=== PATIENT | male | born 1955 ===

== ENCOUNTER 2024-07-31 16:28 | Inpatient (IN) ==
[2024-07-31 17:19] LABS: Basophils # (auto) 0.01 K/uL (0.00-0.20); Basophils % (auto) 0.3 %; Eosinophils # (auto) 0.04 K/uL (0.00-0.50); Eosinophils % (auto) 1.1 %; Hemoglobin 12.2 g/dl (14.0-18.0); Immature Granulocytes # (auto) 0.01 K/uL (0.01-0.20); Immature Granulocytes % (auto) 0.3 %; Lymphocytes # (auto) 0.63 K/uL (1.20-3.40); Lymphocytes % (auto) 16.8 %; Mean Corpuscular Hemoglobin 28.8 pg (25.0-34.0); Mean Corpuscular Hgb Conc 32.1 g/dL (32.0-36.0); Mean Corpuscular Volume 89.8 fL (80.0-100.0); Mean Platelet Volume 10.5 fL (9.4-12.4); Monocytes # (auto) 0.32 K/uL (0.11-0.59); Monocytes % (auto) 8.6 %; Neutrophils # (auto) 2.73 K/uL (1.40-6.50); Neutrophils % (auto) 72.9 %; Platelet Count 157 K/uL (130-400); RDW Coefficient of Variation 15.1 % (11.5-14.5); RDW Standard Deviation 49.8 fL (36.4-46.3); Red Blood Count 4.23 M/uL (4.70-6.10); White Blood Count 3.74 K/ul (4.8-10.8)
[2024-07-31 17:35] LABS: Anion Gap 7 (3-11); BUN Creatinine Ratio 23.4 (10-20); Blood Urea Nitrogen 30 mg/dl (6-23); Calcium 10.7 mg/dl (8.6-10.3); Carbon Dioxide 32 mmol/L (21-32); Chloride 103 mmol/L (98-107); Creatinine Clr Calc Pharmacy 59.6 ml/min; Glucose 231 mg/dl (70-99(Fasting)); Potassium 4.2 mmol/L (3.5-5.1); Sodium 142 mmol/L (136-145)
[2024-07-31 17:41] LABS: Troponin I High Sensitivity 14.9 pg/ml (0-20)
[2024-07-31 17:45] LABS: Partial Thromboplastin Ratio 0.9; Partial Thromboplastin Time 25 Seconds (21-31); Prothrombin Time 10.5 Seconds (9.0-12.0)
[2024-07-31 19:07] LABS: Alanine Aminotransferase < 3 U/L (7-52); Albumin Level 3.9 gm/dl (3.4-5.0); Alkaline Phosphatase 85 U/L (34-104); Aspartate Aminotransferase 5 U/L (13-39); Bilirubin Direct 0.3 mg/dl (0-0.2); Creatine Kinase 69 U/L (30-223); Magnesium 1.7 mg/dl (1.7-2.4); Total Protein 7.2 gm/dl (6.0-8.3)
--- NOTE | 2024-07-31 19:09 | XRay Report ---
Clinical History: Fall Technique: 2 frontal views of the chest were obtained Findings: There are no confluent pulmonary infiltrates. The heart size is within normal limits. No pleural effusion or pneumothorax is seen. There is a suspected small calcified granuloma in the left midlung No fracture is noted. There is a right chest wall port with its tip at the junction of the SVC and right atrium Impression: No active disease Electronically signed by Mahendra Davey 07-31-2024 7:09 PM
--- NOTE | 2024-07-31 19:10 | XRay Report ---
Clinical History: Fall 2 views of the right shoulder are submitted for review. Findings: No definite acute fracture is seen. There is superior displacement of the clavicle with respect to the acromion and coracoid process, with associated chronic heterotopic ossification. No other osseous abnormality is identified. There are no radiopaque foreign bodies. Impression: Grade 3 acromioclavicular separation, likely old Electronically signed by Mahendra Davey 07-31-2024 7:10 PM
--- NOTE | 2024-07-31 19:12 | XRay Report ---
Clinical History: Fall 8 views of the right femur are submitted for review. Findings: No fracture or dislocation is seen. No significant arthritic changes are noted. No other osseous abnormality is identified. There are no radiopaque foreign bodies. Impression: No definite fracture is seen. If pain persists, CT could be considered Electronically signed by Mahendra Davey 07-31-2024 7:12 PM
[2024-07-31] MEDS: OPTIRAY 320 100ml IV ONE (19:18)
[2024-07-31 19:38] LABS: Influenza A virus by PCR Negative (Neg); Influenza B virus by PCR Negative (Neg); RSV by PCR Negative (Neg); SARS CoV2 RNA(COVID-19) Ceph NEGATIVE (Negative)
[2024-07-31 20:13] LABS: Appearance Urine Cloudy (Clear); Bacteria Urine Automated None Seen (None Seen); Bilirubin Urine Negative (Negative); Blood Urine Negative (Negative); Color Urine Dark Yellow; Glucose Urine UA 1+ (Negative); Ketones Urine 1+ (Negative); Leukocyte Esterase Urine 2+ (Negative); Nitrite Urine Negative (Negative); Protein Urine 1+ (Negative); Specific Gravity Urine 1.019 (1.000-1.030); Urobilinogen Urine Negative (Negative); WBC Urine Automated >50 /hpf (0-5)
[2024-07-31] MEDS ORDERED: ONDANSETRON INJ 2 MG/ML 2 ML VIAL IV PRN (23:30)
--- NOTE | 2024-07-31 23:30 | History & Physical Report ---
Date of Service July 31, 2024 Assessment & Plan (1) Right femoral fracture: (2) Parkinson disease: (3) Dementia: (4) Diabetes: (5) History of kidney transplant: (6) Stenosis of right carotid artery: (7) Aortic stenosis: (8) CAD (coronary artery disease): (9) BPH (benign prostatic hyperplasia): Plan Pt is a 69 yo male with PMH of DM, dementia, hx of kidney transplant, parkinson's, HLD, primary hyperparathyroidism, and diastolic heart failure presenting to the hospital d/t a fall. Right femoral fracture s/p fall - pt with recent fall - lab work significant for no leukocytosis, Hgb 12.2, electrolytes WNL, Cr 1.28, lactate 1.1, Ca 10.7, procal 0.08 - per ER note (as images not available for review in EHR); CT head negative, CTAP negative for acute abdominal pathology - shoulder xray w/o acute findings (old AC separation noted); CXR negative - femoral xray w/o fracture; however, right femoral fracture noted on CTAP - pain control with tylenol PRN, morphine for breakthrough pain - ortho consulted for possible surgical intervention Primary hyperparathyroidism/hypothyroidism - listed in pt's paper chart; unclear whether or not pt's has had surgical removal of thyroid/parathyroid - Ca 10.7 upon admission; last 9.6 07/24 - would continue home levothyroxine 137mcg daily and cinacalcet 60 mg daily per home med list DM - on insulin as home regimen; no oral meds - insulin glargine 4 mg BID with SSI PRN Parkinsons disease - continue home meds; entacapone 200mg TID, carbidopa 25/levodopa 100 two tabs QID CAD/right carotid artery stenosis/HTN/HLD/aortic stenosis - continue home carvedilol 25 mg BID, atorvastatin 80 mg daily, amlodipine 10 mg daily, aspirin 81 mg daily Dementia/depression/insomnia - continue home meds; quetiapine 12.5mg HS, zyprexa 2.5mg BID, memantine 10 mg BID, duloxetine 30 mg BID, trazodone 75 mg HS, and donepezil 10 mg daily Hx of kidney transplant - continue home tacrolimus 1mg qAM, 0.5mg HS BPH - continue home tamsulosin 0.8mg daily Diet: NPO pending surgical intervention Code: full VTE ppx: held in the setting of pending surgical intervention Dispo: admit to med/surg History of Present Illness Chief Complaint: fall, right hip/shoulder pain Primary Care Provider: Teresa Pendleton Pt is a 69 yo male with PMH of DM, dementia, hx of kidney transplant, parkinson's, HLD, primary hyperparathyroidism, and diastolic heart failure presenting to the hospital d/t ongoing pain after a fall. Pt seen at bedside; he is able to provide limited history. He does note that he had a significant fall a few days ago and now his right leg and shoulder hurt. No family at bedside to provide additional hx. Pt notes his current pain is 5/10. In the ER, pt was ordered pain medications but he did not receive any doses. Allergies Allergy/AdvReac Type Severity Reaction Status Date / Time No Known Allergies Allergy Unverified 07/31/24 20:14 Home Medications Medication Instructions Recorded Confirmed Type acetaminophen 325 mg tablet 650 mg PO Q6H PRN ELEVATED 07/31/24 07/31/24 History TEMPERATURE >101 acetaminophen 325 mg tablet 650 mg PO Q6H PRN PANCHO LEVEL 1-3 07/31/24 07/31/24 History ON A SCALE OF 1-10 acetaminophen 325 mg tablet 650 mg PO Q6H PRN Pain (Scale 07/31/24 07/31/24 History Score 1-10) amlodipine 10 mg tablet 10 mg PO DAILY 07/31/24 07/31/24 History aspirin 81 mg chewable tablet 81 mg PO DAILY 07/31/24 07/31/24 History atorvastatin 80 mg tablet 80 mg PO DAILY 07/31/24 07/31/24 History bisacodyl 10 mg rectal suppository 10 mg [place] Q48H PRN Constipation 07/31/24 07/31/24 History (Dulcolax (bisacodyl)) carbidopa 25 mg-levodopa 100 mg 2 tab PO QID 07/31/24 07/31/24 History tablet carvedilol 25 mg tablet 25 mg PO BID 07/31/24 07/31/24 History cinacalcet 60 mg tablet 60 mg PO DAILY 07/31/24 07/31/24 History cyanocobalamin (vitamin B-12) 500 500 mcg PO DAILY 07/31/24 07/31/24 History mcg tablet dextrose 40 % oral gel 1 ea PO USEASDIRECTD PRN 07/31/24 07/31/24 History HYPOGLYCEMIA BLOOD GLUCOSE LESS THAN 60 donepezil 10 mg tablet 10 mg PO DAILY 07/31/24 07/31/24 History duloxetine 30 mg capsule,delayed 30 mg PO Q12H 07/31/24 07/31/24 History release sprinkle entacapone 200 mg tablet 200 mg PO TID 07/31/24 07/31/24 History ferrous sulfate 325 mg (65 mg 325 mg PO DAILY 07/31/24 07/31/24 History iron) tablet fluticasone propionate 50 2 spray intranasal DAILY PRN 07/31/24 07/31/24 History mcg/actuation nasal Congestion spray,suspension folic acid 1 mg tablet 1 mg PO DAILY 07/31/24 07/31/24 History glucagon HCl 1 mg solution for 1 mg IM Q15M PRN HYPOGLYCEMIA 07/31/24 07/31/24 History injection (Glucagon (HCl) BLOOD GLUCOSE <60 AND SYMPTOMATIC Emergency Kit) insulin glargine 100 unit/mL (3 8 unit subcut HS 07/31/24 07/31/24 History mL) subcutaneous pen (Lantus Solostar U-100 Insulin) insulin lispro 100 unit/mL 0 unit subcut .CHANA W/M 07/31/24 07/31/24 History subcutaneous pen (Humalog KwikPen (U-100) Insulin) insulin lispro 100 unit/mL 4 unit subcut .SEERXINSTRUCTIONS 07/31/24 07/31/24 History subcutaneous pen (Humalog KwikPen (U-100) Insulin) levothyroxine 137 mcg tablet 137 mcg PO DAILY 07/31/24 07/31/24 History loratadine 10 mg tablet 10 mg PO DAILY 07/31/24 07/31/24 History melatonin 3 mg tablet 12 mg PO HS PRN Insomnia 07/31/24 07/31/24 History memantine 10 mg tablet 10 mg PO Q12H 07/31/24 07/31/24 History nitroglycerin 0.4 mg sublingual 0.4 mg sublingual Q5M PRN Chest 07/31/24 07/31/24 History tablet (Nitrostat) Pain olanzapine 2.5 mg tablet (Zyprexa) 2.5 mg PO Q12H 07/31/24 07/31/24 History omeprazole 40 mg capsule,delayed 40 mg PO BID 07/31/24 07/31/24 History release ondansetron HCl 4 mg tablet 4 mg PO Q8H PRN Nausea 07/31/24 07/31/24 History prednisone 5 mg tablet 5 mg PO DAILY 07/31/24 07/31/24 History quetiapine 25 mg tablet 12.5 mg PO HS 07/31/24 07/31/24 History sennosides 8.6 mg-docusate sodium 1 tab-cap PO HS 07/31/24 07/31/24 History 50 mg tablet (Senna Plus) sodium phosphates 19 gram-7 118 ml [place] Q48H PRN Constipation 07/31/24 07/31/24 History gram/118 mL enema (Enema) tacrolimus 0.5 mg capsule, 0.5 mg PO HS 07/31/24 07/31/24 History immediate-release tacrolimus 1 mg capsule, 1 mg PO DAILY 07/31/24 07/31/24 History immediate-release tamsulosin 0.4 mg capsule (Flomax) 0.8 mg PO DAILY 07/31/24 07/31/24 History thiamine HCl (vitamin B1) 100 mg 100 mg PO DAILY 07/31/24 07/31/24 History tablet torsemide 10 mg tablet 10 mg PO DAILY 07/31/24 07/31/24 History tramadol 50 mg tablet 50 mg PO Q4H PRN HIP PAIN 07/31/24 07/31/24 History tramadol 50 mg tablet 50 mg PO Q4H PRN HIP PAIN SCALE 07/31/24 07/31/24 History 4-10 trazodone 150 mg tablet 75 mg PO HS 07/31/24 07/31/24 History Past Med/Surg History Problem List (Updated 08/01/24 @ 05:35 by Blayne De La Vega MD) Stenosis of right carotid artery 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 History of kidney transplant Agitation due to dementia Depression Aortic stenosis BPH (benign prostatic hyperplasia) Parkinson disease Diabetes CAD (coronary artery disease) Dementia Right femoral fracture (Acute) Medical History (Updated 08/01/24 @ 05:35 by Blayne De La Vega MD) Hyperlipidemia Stenosis of right carotid artery Social History Smoking Status: Unknown if ever smoked Hx Alcohol Use: No Hx Substance Use: No Preferred Language: Thai [employer] Required: No Beliefs That Will Affect Care: None Feels Safe at Home: Yes Review of Systems Review of Systems: As per HPI Physical Exam Constitutional: NAD, vitals WNL. Eyes: Conjunctivae normal. Respiratory: CTA bilaterally. Non labored breathing. No rhonchi, wheezing, or crackles. Cardiovascular: RRR. 3/6 systolic murmur noted. Minimal right LE edema. Gastrointestinal (Abdomen): Nontender, +BS. No masses noted. Musculoskeletal: Right leg flexed and externally rotated. Skin: No rashes noted. Neurologic: Sensation grossly intact. No FND appreciated. Psychiatric: Speech of normal pace but sometimes of irregular content. Mood and affect congruent. Results & Data Results & Data Vital Signs (Past 12 Hours) Vital Signs Temp Pulse Pulse Resp BP BP Pulse Ox 07/31/24 22:10 76 18 142/79 H 97 07/31/24 21:22 78 07/31/24 21:00 78 20 150/76 H 92 07/31/24 20:45 76 16 153/69 H 97 07/31/24 20:30 77 16 108/86 99 07/31/24 19:42 75 18 120/84 96 07/31/24 18:49 72 17 151/82 H 96 07/31/24 18:41 72 16 115/64 98 07/31/24 18:38 07/31/24 17:51 68 07/31/24 16:36 36.8 C 66 22 159/66 H 93 07/31/24 16:36 36.8 C 67 24 159/66 H 94 O2 Del Method 07/31/24 22:10 Room Air 07/31/24 21:22 07/31/24 21:00 Room Air 07/31/24 20:45 Room Air 07/31/24 20:30 Room Air 07/31/24 19:42 Room Air 07/31/24 18:49 Room Air 07/31/24 18:41 Room Air 07/31/24 18:38 Room Air 07/31/24 17:51 07/31/24 16:36 Room Air 07/31/24 16:36 Room Air Supervising Physician Co-Signing Physician Notes Attending addendum: I have physically seen this patient, have supervised the medical residents activities, and agree with the H&P unless as otherwise noted. Assessment and Plan: Closed right femur fracture status post ground-level fall- N.p.o. except medications Chest x-ray negative Right femur x-ray negative Right shoulder x-ray notes old AC separation CT head without contrast negative CT abdomen pelvis negative for acute abdominal pathology CT abdomen pelvis does note right femoral fracture Acetaminophen 1 g IV every 8 hours as needed for mild pain or fever Morphine sulfate as needed for breakthrough pain Consult orthopedic surgery Diabetes mellitus- Insulin glargine twice daily and sliding scale insulin for coverage as noted Parkinson's disease/dementia/depression/agitation Continue routine dosing of carbidopa-levodopa and entacapone Continue donepezil, memantine, entacapone, olanzapine Hold trazodone CAD/hypertension/aortic stenosis- Hold aspirin and amlodipine Continue carvedilol 25 mg p.o. twice daily Chronic immunosuppression/history of renal transplant- Continue tacrolimus, Cinacalcet, Hold prednisone, may need stress dose steroids Resident Activity Tracking Resident Involvement: Resident Care Provided Care Provided: Adult Hospital Medicine
--- NOTE | 2024-08-01 00:49 | Emergency Department Note ---
History of Present Illness General Chief complaint: Hip Pain Stated complaint: FALL, HIP PAIN, R SHOULDER PAIN Time Seen by Provider: 07/31/24 16:55 History of Present Illness Provider complaint: Fall Maximum Pain Intensity: 9 49-year-old male presents emergency department for fall. Patient reportedly fell 3 days ago and has been having right hip pain since then. He denies any headache. Does report pain in his right shoulder also. Home Medications Medication Instructions Recorded Confirmed Type acetaminophen 325 mg tablet 650 mg PO Q6H PRN ELEVATED 07/31/24 07/31/24 History TEMPERATURE >101 acetaminophen 325 mg tablet 650 mg PO Q6H PRN PANCHO LEVEL 1-3 07/31/24 07/31/24 History ON A SCALE OF 1-10 acetaminophen 325 mg tablet 650 mg PO Q6H PRN Pain (Scale 07/31/24 07/31/24 History Score 1-10) amlodipine 10 mg tablet 10 mg PO DAILY 07/31/24 07/31/24 History aspirin 81 mg chewable tablet 81 mg PO DAILY 07/31/24 07/31/24 History atorvastatin 80 mg tablet 80 mg PO DAILY 07/31/24 07/31/24 History bisacodyl 10 mg rectal suppository 10 mg MA Q48H PRN Constipation 07/31/24 07/31/24 History (Dulcolax (bisacodyl)) carbidopa 25 mg-levodopa 100 mg 2 tab PO QID 07/31/24 07/31/24 History tablet carvedilol 25 mg tablet 25 mg PO BID 07/31/24 07/31/24 History cinacalcet 60 mg tablet 60 mg PO DAILY 07/31/24 07/31/24 History cyanocobalamin (vitamin B-12) 500 500 mcg PO DAILY 07/31/24 07/31/24 History mcg tablet dextrose 40 % oral gel 1 ea PO USEASDIRECTD PRN 07/31/24 07/31/24 History HYPOGLYCEMIA BLOOD GLUCOSE LESS THAN 60 donepezil 10 mg tablet 10 mg PO DAILY 07/31/24 07/31/24 History duloxetine 30 mg capsule,delayed 30 mg PO Q12H 07/31/24 07/31/24 History release sprinkle entacapone 200 mg tablet 200 mg PO TID 07/31/24 07/31/24 History ferrous sulfate 325 mg (65 mg 325 mg PO DAILY 07/31/24 07/31/24 History iron) tablet fluticasone propionate 50 2 spray intranasal DAILY PRN 07/31/24 07/31/24 History mcg/actuation nasal Congestion spray,suspension folic acid 1 mg tablet 1 mg PO DAILY 07/31/24 07/31/24 History glucagon HCl 1 mg solution for 1 mg IM Q15M PRN HYPOGLYCEMIA 07/31/24 07/31/24 History injection (Glucagon (HCl) BLOOD GLUCOSE <60 AND SYMPTOMATIC Emergency Kit) insulin glargine 100 unit/mL (3 8 unit subcut HS 07/31/24 07/31/24 History mL) subcutaneous pen (Lantus Solostar U-100 Insulin) insulin lispro 100 unit/mL 0 unit subcut .PERSLIDINGSCALE W/M 07/31/24 07/31/24 History subcutaneous pen (Humalog KwikPen (U-100) Insulin) insulin lispro 100 unit/mL 4 unit subcut .SEERXINSTRUCTIONS 07/31/24 07/31/24 History subcutaneous pen (Humalog KwikPen (U-100) Insulin) levothyroxine 137 mcg tablet 137 mcg PO DAILY 07/31/24 07/31/24 History loratadine 10 mg tablet 10 mg PO DAILY 07/31/24 07/31/24 History melatonin 3 mg tablet 12 mg PO HS PRN Insomnia 07/31/24 07/31/24 History memantine 10 mg tablet 10 mg PO Q12H 07/31/24 07/31/24 History nitroglycerin 0.4 mg sublingual 0.4 mg sublingual Q5M PRN Chest 07/31/24 07/31/24 History tablet (Nitrostat) Pain olanzapine 2.5 mg tablet (Zyprexa) 2.5 mg PO Q12H 07/31/24 07/31/24 History omeprazole 40 mg capsule,delayed 40 mg PO BID 07/31/24 07/31/24 History release ondansetron HCl 4 mg tablet 4 mg PO Q8H PRN Nausea 07/31/24 07/31/24 History prednisone 5 mg tablet 5 mg PO DAILY 07/31/24 07/31/24 History quetiapine 25 mg tablet 12.5 mg PO HS 07/31/24 07/31/24 History sennosides 8.6 mg-docusate sodium 1 tab-cap PO HS 07/31/24 07/31/24 History 50 mg tablet (Senna Plus) sodium phosphates 19 gram-7 118 ml MA Q48H PRN Constipation 07/31/24 07/31/24 History gram/118 mL enema (Enema) tacrolimus 0.5 mg capsule, 0.5 mg PO HS 07/31/24 07/31/24 History immediate-release tacrolimus 1 mg capsule, 1 mg PO DAILY 07/31/24 07/31/24 History immediate-release tamsulosin 0.4 mg capsule (Flomax) 0.8 mg PO DAILY 07/31/24 07/31/24 History thiamine HCl (vitamin B1) 100 mg 100 mg PO DAILY 07/31/24 07/31/24 History tablet torsemide 10 mg tablet 10 mg PO DAILY 07/31/24 07/31/24 History tramadol 50 mg tablet 50 mg PO Q4H PRN HIP PAIN 07/31/24 07/31/24 History tramadol 50 mg tablet 50 mg PO Q4H PRN HIP PAIN SCALE 07/31/24 07/31/24 History 4-10 trazodone 150 mg tablet 75 mg PO HS 07/31/24 07/31/24 History Allergies Allergy/AdvReac Type Severity Reaction Status Date / Time No Known Allergies Allergy Unverified 07/31/24 20:14 Past Med/Surg History Problem List (Updated 08/01/24 @ 00:56 by Elias Roth MD) Dementia Right femoral fracture (Acute) Medical History BPH (benign prostatic hyperplasia) CAD (coronary artery disease) Aortic stenosis Stenosis of right carotid artery Diabetes Parkinson disease Surgical History History of kidney transplant Social History Smoking Status: Former smoker Preferred Language: Faroese Feels Safe at Home: Yes Physical Exam Vital Signs Vital Signs - 24 hr 07/31/24 16:36 07/31/24 16:36 07/31/24 17:51 Temperature 36.8 C 36.8 C Temperature Source Oral Oral Pulse Rate 67 68 Pulse Rate [Apical] 66 Respiratory Rate 24 22 Respiratory Effort / Characteristics Non-Labored Spontaneous Respiratory Depth Normal Respiratory Pattern Blood Pressure 159/66 H Blood Pressure [Right Arm] 159/66 H Blood Pressure Mean 97 Blood Pressure Mean [Right Arm] 97 Blood Pressure Position Semi-fowlers Blood Pressure Position [Right Arm] Semi-fowlers Pulse Oximetry 94 93 Oxygen Delivery Method Room Air Room Air Sepsis Recent Fever Within 48 Hours No Sepsis New/Unexplained Change in Mental Status N/A Sepsis Action Taken by Nursing No Action Required 07/31/24 18:38 07/31/24 18:41 07/31/24 18:49 Temperature Temperature Source Pulse Rate Pulse Rate [Apical] 72 72 Respiratory Rate 16 17 Respiratory Effort / Characteristics Non-Labored Spontaneous Non-Labored Spontaneous Respiratory Depth Normal Normal Respiratory Pattern Blood Pressure Blood Pressure [Right Arm] 115/64 151/82 H Blood Pressure Mean Blood Pressure Mean [Right Arm] 81 105 Blood Pressure Position Blood Pressure Position [Right Arm] Semi-fowlers Semi-fowlers Pulse Oximetry 98 96 Oxygen Delivery Method Room Air Room Air Room Air Sepsis Recent Fever Within 48 Hours Sepsis New/Unexplained Change in Mental Status Sepsis Action Taken by Nursing 07/31/24 19:42 07/31/24 20:30 07/31/24 20:45 Temperature Temperature Source Pulse Rate Pulse Rate [Apical] 75 77 76 Respiratory Rate 18 16 16 Respiratory Effort / Characteristics Non-Labored Respiratory Depth Normal Normal Respiratory Pattern Regular Blood Pressure Blood Pressure [Right Arm] 120/84 108/86 153/69 H Blood Pressure Mean Blood Pressure Mean [Right Arm] 96 93 97 Blood Pressure Position Blood Pressure Position [Right Arm] Pulse Oximetry 96 99 97 Oxygen Delivery Method Room Air Room Air Room Air Sepsis Recent Fever Within 48 Hours Sepsis New/Unexplained Change in Mental Status Sepsis Action Taken by Nursing 07/31/24 21:00 07/31/24 21:22 07/31/24 22:10 Temperature Temperature Source Pulse Rate 78 Pulse Rate [Apical] 78 76 Respiratory Rate 20 18 Respiratory Effort / Characteristics Respiratory Depth Respiratory Pattern Blood Pressure Blood Pressure [Right Arm] 150/76 H 142/79 H Blood Pressure Mean Blood Pressure Mean [Right Arm] 100 100 Blood Pressure Position Blood Pressure Position [Right Arm] Pulse Oximetry 92 97 Oxygen Delivery Method Room Air Room Air Sepsis Recent Fever Within 48 Hours Sepsis New/Unexplained Change in Mental Status Sepsis Action Taken by Nursing 07/31/24 23:30 11/05/24 00:24 Temperature Temperature Source Pulse Rate Pulse Rate [Apical] 75 74 Respiratory Rate 18 18 Respiratory Effort / Characteristics Non-Labored Respiratory Depth Normal Respiratory Pattern Blood Pressure Blood Pressure [Right Arm] 148/80 H 161/77 H Blood Pressure Mean Blood Pressure Mean [Right Arm] 102 105 Blood Pressure Position Blood Pressure Position [Right Arm] Pulse Oximetry 96 99 Oxygen Delivery Method Room Air Room Air Sepsis Recent Fever Within 48 Hours Sepsis New/Unexplained Change in Mental Status Sepsis Action Taken by Nursing Physical Exam HENT: Exam performed. - Head: Normocephalic and atraumatic. - Right Ear: External ear normal. No mastoid erythema - Left Ear: External ear normal. No mastoid erythema - Mouth/Throat: The oropharynx is clear and moist. No trismus in the jaw. No dental abscesses or uvula swelling. No oropharyngeal exudate or tonsillar abscesses. EYES: Conjunctivae and EOM are normal. Pupils are equal, round, and reactive to light. Right eye exhibits no discharge. Left eye exhibits no discharge. No scleral icterus. NECK: Normal range of motion. Neck supple. No JVD present. No spinous process tenderness present. CV: Normal rate, regular rhythm, normal heart sounds and intact distal pulses. There is no peripheral edema. Palpable radial pulses bue. PULM/CHEST: Effort normal and breath sounds normal. No respiratory distress. No stridor. He has no wheezes. He has no rales. - Chest Wall: He exhibits no tenderness. No crepitus bilaterally. ABD: The abdomen is soft. There is no tenderness. There is no rebound, no guarding. MUSC/SKEL: Pain on palpation of the right hip. NEURO: He is alert and oriented to person, place, and time. No cranial nerve deficit or sensory deficit. GCS eye subscore is 4. GCS verbal subscore is 5. GCS motor subscore is 6. Cerebellar tests wnl. Course Course 1655: The patient was evaluated in room C10. A complete history and physical exam was performed Cardiac monitoring: An order was placed for continuous cardiac monitoring. The monitor shows a rate of 70 with sinus rhythm interpreted by mo 2215: Vital signs stable. Labs unremarkable. Imaging shows a nondisplaced right intertrochanteric proximal right femur fracture. Patient will be admitted to the medicine service with orthopedics on consult. Administered Medications Discontinued Medications Ioversol (Optiray 320 100ml) 90 ml IV ONCE ONE Stop: 07/31/24 19:18 Last Admin: 07/31/24 19:18 Dose: 90 ml Documented By: MINNA Medical Decision Making Laboratory Data Attestation: I reviewed the patient's lab results. 07/31/24 16:45 07/31/24 16:45 Lab Results 07/31/24 07/31/24 07/31/24 Range/Units 16:45 17:56 18:40 WBC 3.74 L (4.8-10.8) K/ul RBC 4.23 L (4.70-6.10) M/uL Hgb 12.2 L (14.0-18.0) g/dl Hct 38.0 L (42.0-52.0) % MCV 89.8 (80.0-100.0) fL MCH 28.8 (25.0-34.0) pg MCHC 32.1 (32.0-36.0) g/dL RDW Std Deviation 49.8 H (36.4-46.3) fL RDW Coeff of Courtney 15.1 H (11.5-14.5) % Plt Count 157 (130-400) K/uL MPV 10.5 (9.4-12.4) fL Immature Gran % (Auto) 0.3 % Neut % (Auto) 72.9 % Lymph % (Auto) 16.8 % [place] % (Auto) 8.6 % Eos % (Auto) 1.1 % Baso % (Auto) 0.3 % Neut # (Auto) 2.73 (1.40-6.50) K/uL Lymph # (Auto) 0.63 L (1.20-3.40) K/uL [place] # (Auto) 0.32 (0.11-0.59) K/uL Eos # (Auto) 0.04 (0.00-0.50) K/uL Baso # (Auto) 0.01 (0.00-0.20) K/uL Immature Gran # (Auto) 0.01 (0.01-0.20) K/uL PT 10.5 (9.0-12.0) Seconds INR 1.0 (0.9-1.1) APTT 25 (21-31) Seconds PTT Ratio 0.9 Sodium 142 (136-145) mmol/L Potassium 4.2 (3.5-5.1) mmol/L Chloride 103 (98-107) mmol/L Carbon Dioxide 32 (21-32) mmol/L Anion Gap 7 (3-11) BUN 30 H (6-23) mg/dl Creatinine 1.28 (0.6-1.4) mg/dl Est Cr Clr Drug Dosing 59.6 ml/min eGFR 61.34 BUN/Creatinine Ratio 23.4 H (10-20) Glucose 231 H (70-99(Fasting)) mg/dl Lactate 1.1 (0.4-2.0) mmol/L Calcium 10.7 H (8.6-10.3) mg/dl Magnesium 1.7 (1.7-2.4) mg/dl Total Bilirubin 1.0 (0.2-1.0) mg/dl Direct Bilirubin 0.3 H (0-0.2) mg/dl AST 5 L (13-39) U/L ALT < 3 L (7-52) U/L Alkaline Phosphatase 85 (34-104) U/L Total Creatine Kinase 69 (30-223) U/L Troponin I High Sens 14.9 (0-20) pg/ml Total Protein 7.2 (6.0-8.3) gm/dl Albumin 3.9 (3.4-5.0) gm/dl Procalcitonin 0.08 (0-0.5) ng/ml Urine Color Urine Appearance (Clear) Urine pH (4.5-7.5) Ur Specific [place] (1.000-1.030) Urine Protein (Negative) Urine Glucose (UA) (Negative) Urine Ketones (Negative) Urine Blood (Negative) Urine Nitrite (Negative) Urine Bilirubin (Negative) Urine Urobilinogen (Negative) Ur Leukocyte Esterase (Negative) Urine WBC (Auto) (0-5) /hpf Urine RBC (Auto) (0-2) /hpf U Hyaline Cast (Auto) (0-2) /lpf U Epithel Cells (Auto) (0-2) /hpf Urine Bacteria (Auto) (None Seen) Urine Yeast (None Prsent) SARS-CoV-2 (PCR) NEGATIVE (Negative) Influenza Type A (PCR) Negative (Neg) Influenza Type B (PCR) Negative (Neg) RSV (RT-PCR) Negative (Neg) 07/31/24 Range/Units 19:43 WBC (4.8-10.8) K/ul RBC (4.70-6.10) M/uL Hgb (14.0-18.0) g/dl Hct (42.0-52.0) % MCV (80.0-100.0) fL MCH (25.0-34.0) pg MCHC (32.0-36.0) g/dL RDW Std Deviation (36.4-46.3) fL RDW Coeff of Courtney (11.5-14.5) % Plt Count (130-400) K/uL MPV (9.4-12.4) fL Immature Gran % (Auto) % Neut % (Auto) % Lymph % (Auto) % [place] % (Auto) % Eos % (Auto) % Baso % (Auto) % Neut # (Auto) (1.40-6.50) K/uL Lymph # (Auto) (1.20-3.40) K/uL [place] # (Auto) (0.11-0.59) K/uL Eos # (Auto) (0.00-0.50) K/uL Baso # (Auto) (0.00-0.20) K/uL Immature Gran # (Auto) (0.01-0.20) K/uL PT (9.0-12.0) Seconds INR (0.9-1.1) APTT (21-31) Seconds PTT Ratio Sodium (136-145) mmol/L Potassium (3.5-5.1) mmol/L Chloride (98-107) mmol/L Carbon Dioxide (21-32) mmol/L Anion Gap (3-11) BUN (6-23) mg/dl Creatinine (0.6-1.4) mg/dl Est Cr Clr Drug Dosing ml/min eGFR BUN/Creatinine Ratio (10-20) Glucose (70-99(Fasting)) mg/dl Lactate (0.4-2.0) mmol/L Calcium (8.6-10.3) mg/dl Magnesium (1.7-2.4) mg/dl Total Bilirubin (0.2-1.0) mg/dl Direct Bilirubin (0-0.2) mg/dl AST (13-39) U/L ALT (7-52) U/L Alkaline Phosphatase (34-104) U/L Total Creatine Kinase (30-223) U/L Troponin I High Sens (0-20) pg/ml Total Protein (6.0-8.3) gm/dl Albumin (3.4-5.0) gm/dl Procalcitonin (0-0.5) ng/ml Urine Color Dark Yellow Urine Appearance Cloudy A (Clear) Urine pH 6.0 (4.5-7.5) Ur Specific [place] 1.019 (1.000-1.030) Urine Protein 1+ H (Negative) Urine Glucose (UA) 1+ H (Negative) Urine Ketones 1+ H (Negative) Urine Blood Negative (Negative) Urine Nitrite Negative (Negative) Urine Bilirubin Negative (Negative) Urine Urobilinogen Negative (Negative) Ur Leukocyte Esterase 2+ H (Negative) Urine WBC (Auto) >50 H (0-5) /hpf Urine RBC (Auto) 3-5 H (0-2) /hpf U Hyaline Cast (Auto) 3-5 H (0-2) /lpf U Epithel Cells (Auto) 6-10 H (0-2) /hpf Urine Bacteria (Auto) None Seen (None Seen) Urine Yeast Present A (None Prsent) SARS-CoV-2 (PCR) (Negative) Influenza Type A (PCR) (Neg) Influenza Type B (PCR) (Neg) RSV (RT-PCR) (Neg) Imaging Data Radiologist's Impression: Chest X-Ray 07/31/24 17:02 Clinical History: Fall Technique: 2 frontal views of the chest were obtained Findings: There are no confluent pulmonary infiltrates. The heart size is within normal limits. No pleural effusion or pneumothorax is seen. There is a suspected small calcified granuloma in the left midlung No fracture is noted. There is a right chest wall port with its tip at the junction of the SVC and right atrium Impression: No active disease Electronically signed by Mahendra Davey 07-31-2024 7:09 PM Femur X-Ray 07/31/24 17:03 Clinical History: Fall 8 views of the right femur are submitted for review. Findings: No fracture or dislocation is seen. No significant arthritic changes are noted. No other osseous abnormality is identified. There are no radiopaque foreign bodies. Impression: No definite fracture is seen. If pain persists, CT could be considered Electronically signed by Mahendra Davey 07-31-2024 7:12 PM Shoulder X-Ray 07/31/24 17:04 Clinical History: Fall 2 views of the right shoulder are submitted for review. Findings: No definite acute fracture is seen. There is superior displacement of the clavicle with respect to the acromion and coracoid process, with associated chronic heterotopic ossification. No other osseous abnormality is identified. There are no radiopaque foreign bodies. Impression: Grade 3 acromioclavicular separation, likely old Electronically signed by Mahendra Davey 07-31-2024 7:10 PM EXAM: CT Head Without Intravenous Contrast CLINICAL HISTORY: Reason for exam: FALL. TECHNIQUE: Axial computed tomography images of the head/brain without intravenous contrast. CTDI is 28 mGy and DLP is 1451 mGy-cm. Automated exposure control was utilized for the study. A dose lowering technique was utilized adhering to the principles of ALARA. Mild motion artifact. COMPARISON: None. FINDINGS: Brain: No mass effect or acute infarct. No acute hemorrhage. Moderate atrophy and chronic white matter disease. Ventricles: No hydrocephalus or midline shift. Bones/joints: No skull fracture. Soft tissues: No scalp hematoma. Visualized Sinuses: Clear. Mastoid air cells: No mastoid effusion. IMPRESSION: 1. Moderate age-related findings. 2. No skull fracture, bleed, or acute intracranial abnormality. Radiologist: Etta Myles M.D. Electronically Signed: 07/31/24 20:55 Study first marked ready to read at 20:08, study last marked ready to read at 20:08, initial results transmitted at 20:55 EXAM: CT Abdomen and Pelvis With Intravenous Contrast CLINICAL HISTORY: Reason for exam: fall. TECHNIQUE: Axial computed tomography images of the abdomen and pelvis with intravenous contrast. CTDI is 28 mGy and DLP is 1451 mGy-cm. Automated exposure control was utilized for the study. A dose lowering technique was utilized adhering to the principles of ALARA. CONTRAST: Patient received 90 ML OPTIRAY 320 of IV contrast COMPARISON: No relevant prior studies available. FINDINGS: Lung bases: Unremarkable. No mass. No consolidation. ABDOMEN: Liver: Unremarkable. No mass. Gallbladder and bile ducts: There is a 1.7 cm thick layer of 2-3 mm calcific gallstones filling a nondilated gallbladder. No biliary duct dilation or choledocholithiasis is seen. Pancreas: Unremarkable. No mass. No ductal dilation. Spleen: Unremarkable. No splenomegaly. Adrenals: Unremarkable. No mass. Kidneys and ureters: The [place] kidneys are moderately atrophic. There is a right lower quadrant transplant kidney with mild hydronephrosis. No ureterolithiasis is seen. Stomach and bowel: Unremarkable. No obstruction. No mucosal thickening. PELVIS: Appendix: No findings to suggest acute appendicitis. Bladder: The urinary bladder is fully distended but nondilated. Reproductive: Unremarkable as visualized. ABDOMEN and PELVIS: Intraperitoneal space: Bowel loops are nondilated. No pneumoperitoneum, free fluid, or acute inflammatory changes are seen involving the bowel. Bones/joints: There is a acute nondisplaced fracture of the intertrochanteric proximal right femur. Mild to moderate multilevel degenerative changes throughout the spine. No acute fracture or subluxation is seen. Subchondral sclerosis involving the left femoral head consistent with subchondral cysts, less likely avascular necrosis. Soft tissues: Unremarkable. Vasculature: The abdominal aorta is severely calcified but nondilated. There is no aneurysm or dissection. Lymph nodes: Unremarkable. No enlarged lymph nodes. IMPRESSION: 1. The [place] kidneys are moderately atrophic. There is a right lower quadrant transplant kidney with mild hydronephrosis. No ureterolithiasis is seen. 2. There is a acute nondisplaced fracture of the intertrochanteric proximal right femur. 3. There is a 1.7 cm thick layer of 2-3 mm calcific gallstones filling a nondilated gallbladder. No biliary duct dilation or choledocholithiasis is seen. 4. Bowel loops are nondilated. No pneumoperitoneum, free fluid, or acute inflammatory changes are seen involving the bowel. Radiologist: Joshua Vazquez MD Electronically Signed: 07/31/24 21:55 Study first marked ready to read at 19:34, study last marked ready to read at 21:48, initial results transmitted at 21:55 EXAM: CT Cervical Spine Without Intravenous Contrast CLINICAL HISTORY: Reason for exam: FALL. TECHNIQUE: Axial computed tomography images of the cervical spine without intravenous contrast. CTDI is 28 mGy and DLP is 1451 mGy-cm. Automated exposure control was utilized for the study. A dose lowering technique was utilized adhering to the principles of ALARA. COMPARISON: No relevant prior studies available. FINDINGS: Vertebrae: Endplate flattening and osteophyte formation, degenerative. No acute fracture. Discs/spinal canal/neural foramina: Severe degenerative disc disease C4-5, C5-6 and C6-7. Soft tissues: Moderate atherosclerosis bilateral carotid bifurcations.. IMPRESSION: 1. No fracture or acute bony abnormality. Radiologist: Etta Myles M.D. Electronically Signed: 07/31/24 21:01 Study first marked ready to read at 19:59, study last marked ready to read at 19:59, initial results transmitted at 21:01 [facility] Narrative 1655: The patient was evaluated in room C10. A complete history and physical exam was performed Cardiac monitoring: An order was placed for continuous cardiac monitoring. The monitor shows a rate of 70 with sinus rhythm interpreted by me 2215: Vital signs stable. Labs unremarkable. Imaging shows a nondisplaced right intertrochanteric proximal right femur fracture. Patient will be admitted to the medicine service with orthopedics on consult. Impression & Plan Right femoral fracture Discharge Plan Visit Data Chief Complaint: Hip Pain Stated Complaint: FALL, HIP PAIN, R SHOULDER PAIN ED Provider: Elias Roth Discharge Problem: Right femoral fracture Patient Disposition: Admitted As Inpatient Discharge Instructions Interventions: ED Discharge Assessment Last Done: 08/01/24 00:30 Prescriptions Prescriptions: No Action quetiapine 25 mg Tablet 12.5 mg PO HS levothyroxine 137 mcg Tablet 137 mcg PO DAILY atorvastatin 80 mg Tablet 80 mg PO DAILY carvedilol 25 mg Tablet 25 mg PO BID acetaminophen 325 mg Tablet 650 mg PO Q6H MDD 3 GRAMS PRN (Reason: Pain (Scale Score 1-10)) acetaminophen 325 mg Tablet 650 mg PO Q6H PRN (Reason: ELEVATED TEMPERATURE >101) Rx Instructions: DO NOT EXCEED 3 GM/24 HOURS acetaminophen 325 mg Tablet 650 mg PO Q6H MDD 3 GRAMS/24 HOURS PRN (Reason: PANCHO LEVEL 1-3 ON A SCALE OF 1-10) donepezil 10 mg Tablet 10 mg PO DAILY ondansetron HCl 4 mg Tablet 4 mg PO Q8H PRN (Reason: Nausea) sennosides-docusate sodium [Senna Plus] 8.6-50 mg Tablet 1 tab-cap PO HS dextrose [Insta-Glucose] 40 % Gel 1 ea PO USEASDIRECTD PRN (Reason: HYPOGLYCEMIA BLOOD GLUCOSE LESS THAN 60) Rx Instructions: MUST BE RESPONSIVE AND ABLE TO SAFELY SWALLOW prednisone 5 mg Tablet 5 mg PO DAILY melatonin 3 mg Tablet 12 mg PO HS PRN (Reason: Insomnia) omeprazole 40 mg Capsule,Delayed Release(Dr/Ec) 40 mg PO BID entacapone 200 mg Tablet 200 mg PO TID cyanocobalamin (vitamin B-12) 500 mcg Tablet 500 mcg PO DAILY tamsulosin [Flomax] 0.4 mg Capsule 0.8 mg PO DAILY amlodipine 10 mg Tablet 10 mg PO DAILY bisacodyl [Dulcolax (bisacodyl)] 10 mg Suppository 10 mg MA Q48H PRN (Reason: Constipation) ferrous sulfate 325 mg (65 mg iron) Tablet 325 mg PO DAILY Enema 19-7 gram/118 mL Enema 118 ml MA Q48H PRN (Reason: Constipation) nitroglycerin [Nitrostat] 0.4 mg Tablet, Sublingual 0.4 mg sublingual Q5M MDD 3 DOSES IN 15 MINUTES PRN (Reason: Chest Pain) aspirin 81 mg Tablet,Chewable 81 mg PO DAILY folic acid 1 mg Tablet 1 mg PO DAILY carbidopa-levodopa 25-100 mg Tablet 2 tab PO QID fluticasone propionate [Flonase] 50 mcg/actuation [place],Suspension 2 spray INTRANASAL DAILY PRN (Reason: Congestion) Rx Instructions: administer into each nostril loratadine 10 mg Tablet 10 mg PO DAILY insulin lispro [Humalog KwikPen Insulin] 100 unit/mL Insulin Pen 4 unit SUBCUT .SEERXINSTRUCTIONS Rx Instructions: WITH MEALS insulin lispro [Humalog KwikPen Insulin] 100 unit/mL Insulin Pen 0 unit SUBCUT .PERSLIDINGSCALE W/M Rx Instructions: IF 150-200 = 2 UNITS; 201-250= 4 UNITS; 251-300=6 UNITS; 301-350=8 UNITS; 351-400=10 UNITS>400 CALL MD, WITH MEALS memantine 10 mg Tablet 10 mg PO Q12H cinacalcet 60 mg Tablet 60 mg PO DAILY insulin glargine [Lantus Solostar U-100 Insulin] 100 unit/mL (3 mL) Insulin Pen 8 unit SUBCUT HS duloxetine 30 mg Capsule, Delayed Rel Sprinkle 30 mg PO Q12H glucagon HCl [Glucagon (HCl) Emergency Kit] 1 mg Recon Soln 1 mg IM Q15M PRN (Reason: HYPOGLYCEMIA BLOOD GLUCOSE <60 AND SYMPTOMATIC) thiamine HCl (vitamin B1) 100 mg Tablet 100 mg PO DAILY torsemide 10 mg Tablet 10 mg PO DAILY olanzapine [Zyprexa] 2.5 mg Tablet 2.5 mg PO Q12H tramadol 50 mg Tablet 50 mg PO Q4H PRN (Reason: HIP PAIN) tramadol 50 mg Tablet 50 mg PO Q4H PRN (Reason: HIP PAIN SCALE 4-10 ) trazodone 150 mg Tablet 75 mg PO HS tacrolimus 1 mg Capsule 1 mg PO DAILY tacrolimus 0.5 mg Capsule 0.5 mg PO HS Discharge Problem: Right femoral fracture Qualifiers: Encounter type: initial encounter Femur location: intertrochanteric Fracture type: closed Fracture alignment: nondisplaced Qualified Code(s): S72.144A - Nondisplaced intertrochanteric fracture of right femur, initial encounter for closed fracture
[2024-08-01] MEDS ORDERED: DEXTROSE 50% 50 ML SYRINGE IV PRN (00:58)
[2024-08-01] MEDS ORDERED: CARBOHYDRATES FOR HYPOGLYCEMIA PO PRN (00:58)
[2024-08-01] MEDS ORDERED: MELATONIN 3 MG TAB PO PRN (00:58)
[2024-08-01] MEDS ORDERED: GLUCOSE 10 TAB/TUBE PO PRN (00:58)
[2024-08-01] MEDS ORDERED: ACETAMINOPHEN 1,000 MG/100 ML VIAL IV PRN (00:58)
[2024-08-01] MEDS ORDERED: FLUTICASONE PROPIONATE NA SPR 16 GM BTL NAE PRN (00:58)
[2024-08-01] MEDS ORDERED: GLUCAGON FOR INJ 1 MG VIAL SQ PRN (00:58)
[2024-08-01] MEDS ORDERED: GLUCOSE 40% GEL 15 GM TUBE PO PRN (00:58)
--- NOTE | 2024-08-01 05:41 | Billing Data ---
Date of Service August 01, 2024 Coding Level of Care Code 70423 INT INP/OBS CARE
[2024-08-01] MEDS: LEVOTHYROXINE SODIUM 137 MCG TABLET PO SCH (06:14)
[2024-08-01] MEDS: INSULIN ASPART PER UNIT CHARGE SC SCH (06:15)
[2024-08-01 06:35] LABS: Hematocrit (blood only) 34.4 % (42.0-52.0); Hemoglobin 11.1 g/dl (14.0-18.0); Mean Corpuscular Hemoglobin 28.8 pg (25.0-34.0); Mean Corpuscular Hgb Conc 32.3 g/dL (32.0-36.0); Mean Corpuscular Volume 89.1 fL (80.0-100.0); Mean Platelet Volume 10.5 fL (9.4-12.4); Platelet Count 151 K/uL (130-400); RDW Coefficient of Variation 15.2 % (11.5-14.5); RDW Standard Deviation 49.7 fL (36.4-46.3); Red Blood Count 3.86 M/uL (4.70-6.10); White Blood Count 3.35 K/ul (4.8-10.8)
[2024-08-01 07:01] LABS: Calcium 10.2 mg/dl (8.6-10.3); Creatinine Clr Calc Pharmacy 66.4 ml/min; Potassium 4.1 mmol/L (3.5-5.1)
--- NOTE | 2024-08-01 07:53 | XRay Report ---
PELVIS AND RIGHT FEMUR RADIOGRAPHS CLINICAL HISTORY: Fall. COMPARISON: None FINDINGS: There is an acute nondisplaced intertrochanteric fracture within the right femur. No addit ional right femoral fractures are present. There are no fractures within the pelvis or left hip. Inci dental note is made of avascular necrosis of the left femoral head. IMPRESSION: 1. Acute nondisplaced intertrochanteric fracture within the right femur. 2. Avascular necrosis of the left femoral head. ACT 112: Negative or not required by law. Electronically signed by: Az Bhandari M.D. 08/01/2024 7:50 AM
[2024-08-01] MEDS: ATORVASTATIN 40 MG TAB PO SCH (08:39)
[2024-08-01] MEDS: MoRPHine SULFATE 4 MG/ML 1 ML CARP\\VIAL IV PRN (08:40)
[2024-08-01] MEDS: CARBIDOPA/LEVODOPA 25/100MG TAB PO SCH (08:40)
[2024-08-01] MEDS: PANTOprazole 40 MG/10 ML SYR IV SCH (08:41)
[2024-08-01] MEDS: carvediloL 25 MG TAB PO SCH (08:41)
[2024-08-01] MEDS: TACROLIMUS 1 MG CAP PO SCH (08:42)
[2024-08-01] MEDS: DONEPEZIL HCL 10 MG TAB PO SCH (08:42)
[2024-08-01] MEDS: OLANZAPINE 2.5 MG TAB PO SCH (08:42)
[2024-08-01] MEDS: CINACALCET HCL 30 MG TAB PO SCH (08:42)
[2024-08-01] MEDS: ENTACAPONE 200 MG TAB PO SCH (08:42)
[2024-08-01] MEDS: DULoxetine HCL 30 MG CAP PO SCH (08:42)
[2024-08-01] MEDS: MEMANTINE HCL 10 MG TAB PO SCH (08:42)
[2024-08-01] MEDS ORDERED: predniSONE 5 MG TAB PO SCH (09:00)
[2024-08-01] MEDS ORDERED: LORATADINE 10 MG TAB PO SCH (09:00)
[2024-08-01] MEDS ORDERED: TAMSULOSIN HCL 0.4 MG CAP PO SCH (09:00)
[2024-08-01] MEDS ORDERED: TORSEMIDE 10 MG TAB PO SCH (09:00)
[2024-08-01] MEDS ORDERED: ASPIRIN 81 MG ECTAB PO SCH (09:00)
[2024-08-01] MEDS ORDERED: amLODIPine BESYLATE 5 MG TAB PO SCH (09:00)
[2024-08-01] MEDS ORDERED: FOLIC ACID 1 MG TAB PO SCH (09:00)
[2024-08-01] MEDS: LANTUS PER UNIT CHARGE SQ SCH (09:06)
--- NOTE | 2024-08-01 09:40 | Anesthesiology Consultation ---
Date of Service August 01, 2024 Assessment & Plan (1) Encounter for pre-operative examination: Chart Review Chart Review: Patient NOT seen in Pre Admission Testing Consults Requested none History Surgery Operation Date: 08/01/24 08:20 Proposed Procedures p Right Short Troch Nail - Rick Crawford MD Height/Weight Height: 5 ft 11 in Weight: 82.1 kg Allergies Allergy/AdvReac Type Severity Reaction Status Date / Time No Known Allergies Allergy Unverified 07/31/24 20:14 Medications Home Medications Medication Instructions Recorded Confirmed Last Taken acetaminophen 325 mg tablet 650 mg PO Q6H PRN ELEVATED 07/31/24 07/31/24 Unknown TEMPERATURE >101 acetaminophen 325 mg tablet 650 mg PO Q6H PRN PANCHO LEVEL 1-3 07/31/24 07/31/24 Unknown ON A SCALE OF 1-10 acetaminophen 325 mg tablet 650 mg PO Q6H PRN Pain (Scale 07/31/24 07/31/24 Unknown Score 1-10) amlodipine 10 mg tablet 10 mg PO DAILY 07/31/24 07/31/24 Unknown aspirin 81 mg chewable tablet 81 mg PO DAILY 07/31/24 07/31/24 Unknown atorvastatin 80 mg tablet 80 mg PO DAILY 07/31/24 07/31/24 Unknown bisacodyl 10 mg rectal suppository 10 mg [place] Q48H PRN Constipation 07/31/24 07/31/24 Unknown (Dulcolax (bisacodyl)) carbidopa 25 mg-levodopa 100 mg 2 tab PO QID 07/31/24 07/31/24 Unknown tablet carvedilol 25 mg tablet 25 mg PO BID 07/31/24 07/31/24 Unknown cinacalcet 60 mg tablet 60 mg PO DAILY 07/31/24 07/31/24 Unknown cyanocobalamin (vitamin B-12) 500 500 mcg PO DAILY 07/31/24 07/31/24 Unknown mcg tablet dextrose 40 % oral gel 1 ea PO USEASDIRECTD PRN 07/31/24 07/31/24 Unknown HYPOGLYCEMIA BLOOD GLUCOSE LESS THAN 60 donepezil 10 mg tablet 10 mg PO DAILY 07/31/24 07/31/24 Unknown duloxetine 30 mg capsule,delayed 30 mg PO Q12H 07/31/24 07/31/24 Unknown release sprinkle entacapone 200 mg tablet 200 mg PO TID 07/31/24 07/31/24 Unknown ferrous sulfate 325 mg (65 mg 325 mg PO DAILY 07/31/24 07/31/24 Unknown iron) tablet fluticasone propionate 50 2 spray intranasal DAILY PRN 07/31/24 07/31/24 Unknown mcg/actuation nasal Congestion spray,suspension folic acid 1 mg tablet 1 mg PO DAILY 07/31/24 07/31/24 Unknown glucagon HCl 1 mg solution for 1 mg IM Q15M PRN HYPOGLYCEMIA 07/31/24 07/31/24 Unknown injection (Glucagon (HCl) BLOOD GLUCOSE <60 AND SYMPTOMATIC Emergency Kit) insulin glargine 100 unit/mL (3 8 unit subcut HS 07/31/24 07/31/24 Unknown mL) subcutaneous pen (Lantus Solostar U-100 Insulin) insulin lispro 100 unit/mL 0 unit subcut .PERSLIDINGSCALE W/M 07/31/24 07/31/24 Unknown subcutaneous pen (Humalog KwikPen (U-100) Insulin) insulin lispro 100 unit/mL 4 unit subcut .SEERXINSTRUCTIONS 07/31/24 07/31/24 Unknown subcutaneous pen (Humalog KwikPen (U-100) Insulin) levothyroxine 137 mcg tablet 137 mcg PO DAILY 07/31/24 07/31/24 Unknown loratadine 10 mg tablet 10 mg PO DAILY 07/31/24 07/31/24 Unknown melatonin 3 mg tablet 12 mg PO HS PRN Insomnia 07/31/24 07/31/24 Unknown memantine 10 mg tablet 10 mg PO Q12H 07/31/24 07/31/24 Unknown nitroglycerin 0.4 mg sublingual 0.4 mg sublingual Q5M PRN Chest 07/31/24 07/31/24 Unknown tablet (Nitrostat) Pain olanzapine 2.5 mg tablet (Zyprexa) 2.5 mg PO Q12H 07/31/24 07/31/24 Unknown omeprazole 40 mg capsule,delayed 40 mg PO BID 07/31/24 07/31/24 Unknown release ondansetron HCl 4 mg tablet 4 mg PO Q8H PRN Nausea 07/31/24 07/31/24 Unknown prednisone 5 mg tablet 5 mg PO DAILY 07/31/24 07/31/24 Unknown quetiapine 25 mg tablet 12.5 mg PO HS 07/31/24 07/31/24 Unknown sennosides 8.6 mg-docusate sodium 1 tab-cap PO HS 07/31/24 07/31/24 Unknown 50 mg tablet (Senna Plus) sodium phosphates 19 gram-7 118 ml [place] Q48H PRN Constipation 07/31/24 07/31/24 Unknown gram/118 mL enema (Enema) tacrolimus 0.5 mg capsule, 0.5 mg PO HS 07/31/24 07/31/24 Unknown immediate-release tacrolimus 1 mg capsule, 1 mg PO DAILY 07/31/24 07/31/24 Unknown immediate-release tamsulosin 0.4 mg capsule (Flomax) 0.8 mg PO DAILY 07/31/24 07/31/24 Unknown thiamine HCl (vitamin B1) 100 mg 100 mg PO DAILY 07/31/24 07/31/24 Unknown tablet torsemide 10 mg tablet 10 mg PO DAILY 07/31/24 07/31/24 Unknown tramadol 50 mg tablet 50 mg PO Q4H PRN HIP PAIN 07/31/24 07/31/24 Unknown tramadol 50 mg tablet 50 mg PO Q4H PRN HIP PAIN SCALE 07/31/24 07/31/24 Unknown 4-10 trazodone 150 mg tablet 75 mg PO HS 07/31/24 07/31/24 Unknown Active Medications Generic Name Dose Route Start Last Admin Trade Name Freq PRN Reason Stop Dose Admin Atorvastatin Calcium 80 mg 08/01/24 09:00 08/01/24 08:39 Atorvastatin 40 Mg Tab PO 08/31/24 08:59 80 mg DAILY DINAH Administration Carbidopa/Levodopa 2 tab 08/01/24 09:00 08/01/24 08:40 Carbidopa/Levodopa 25/100mg Tab PO 08/31/24 08:59 2 tab QID DINAH Administration Carvedilol 25 mg 08/01/24 09:00 08/01/24 08:41 Carvedilol 25 Mg Tab PO 08/31/24 08:59 25 mg BID DINAH Administration Cinacalcet 60 mg 08/01/24 09:00 08/01/24 08:42 Cinacalcet Hcl 30 Mg Tab PO 08/31/24 08:59 60 mg DAILY DINAH Administration Donepezil HCl 10 mg 08/01/24 09:00 08/01/24 08:42 Donepezil Hcl 10 Mg Tab PO 08/31/24 08:59 10 mg DAILY DINAH Administration Duloxetine HCl 30 mg 08/01/24 09:00 08/01/24 08:42 Duloxetine Hcl 30 Mg Cap PO 08/31/24 08:59 30 mg Q12H DINAH Administration Entacapone 200 mg 08/01/24 09:00 08/01/24 08:42 Entacapone 200 Mg Tab PO 08/31/24 08:59 200 mg TID DINAH Administration Pantoprazole Sodium 40 mg in 10 mls @ 5 mls/min 08/01/24 09:00 08/01/24 08:41 Protonix IV 08/31/24 08:59 5 mls/min BID DINAH Administration Insulin Aspart 0 units 08/01/24 06:00 08/01/24 06:15 Insulin Aspart Per Unit Charge SC 08/31/24 05:59 6 units Q6 DINAH Administration Insulin Glargine 4 units 08/01/24 09:00 08/01/24 09:06 Lantus Per Unit Charge SQ 08/31/24 08:59 4 units BID DINAH Administration Levothyroxine Sodium 137 mcg 08/01/24 06:30 08/01/24 06:14 Levothyroxine Sodium 137 Mcg Tablet PO 08/31/24 06:29 137 mcg DAILYBB DINAH Administration Memantine 10 mg 08/01/24 09:00 08/01/24 08:42 Memantine Hcl 10 Mg Tab PO 08/31/24 08:59 10 mg Q12H DINAH Administration Morphine Sulfate 4 mg 07/31/24 22:21 08/01/24 08:40 Morphine Sulfate 4 Mg/Ml 1 Ml Carp\Vial IV 08/14/24 22:20 4 mg Q1H PRN Administration Severe Pain (Rating 7,8,9,10) Olanzapine 2.5 mg 08/01/24 09:00 08/01/24 08:42 Olanzapine 2.5 Mg Tab PO 08/31/24 08:59 2.5 mg Q12H DINAH Administration Tacrolimus 1 mg 08/01/24 09:00 08/01/24 08:42 Tacrolimus 1 Mg Cap PO 08/31/24 08:59 1 mg DAILY DINAH Administration Past Medical History Medical History Hyperlipidemia Stenosis of right carotid artery Social History Smoking Status: Unknown if ever smoked Hx Alcohol Use: No Hx Substance Use: No Physical Exam Vital Signs Last Vital Signs Temp 98.6 F 08/01/24 07:51 Pulse 73 08/01/24 07:51 Resp 18 08/01/24 07:51 BP 152/69 H 08/01/24 07:51 Pulse Ox 97 08/01/24 07:51 O2 Del Method Room Air 08/01/24 07:51 Testing Laboratory Results 08/01/24 06:05 08/01/24 06:05 PT 10.5 Seconds (9.0-12.0) 07/31/24 16:45 INR 1.0 (0.9-1.1) 07/31/24 16:45 APTT 25 Seconds (21-31) 07/31/24 16:45 Urine Color Dark Yellow 07/31/24 19:43 Urine Appearance Cloudy (Clear) A 07/31/24 19:43 Urine pH 6.0 (4.5-7.5) 07/31/24 19:43 Ur Specific [place] 1.019 (1.000-1.030) 07/31/24 19:43 Urine Protein 1+ (Negative) H 07/31/24 19:43 Urine Glucose (UA) 1+ (Negative) H 07/31/24 19:43 Urine Ketones 1+ (Negative) H 07/31/24 19:43 Urine Nitrite Negative (Negative) 07/31/24 19:43 Ur Leukocyte Esterase 2+ (Negative) H 07/31/24 19:43 Urine WBC (Auto) >50 /hpf (0-5) H 07/31/24 19:43 Urine RBC (Auto) 3-5 /hpf (0-2) H 07/31/24 19:43 U Hyaline Cast (Auto) 3-5 /lpf (0-2) H 07/31/24 19:43 U Epithel Cells (Auto) 6-10 /hpf (0-2) H 07/31/24 19:43 Urine Bacteria (Auto) None Seen (None Seen) 07/31/24 19:43 08/01/24 08/01/24 05:50 05:48 POC Glucose 307 H* 308 H* Electrocardiogram Date: 07/31/24 Findings: + NSR @
[2024-08-01] MEDS: predniSONE 20 MG TAB PO STA (10:13)
--- NOTE | 2024-08-01 10:59 | Orthopedic Consultation ---
Date of Consultation August 01, 2024 Assessment & Plan (1) Right femoral fracture: Surgical fixation is recommended for optimal recovery. Patient unable to consent for himself. Dr. Crawford spoke with the patient's , Edie on the phone and they would like to travel to the hospital to discuss this in person so will not proceed with surgery until they are able to speak with Dr. Crawford in person. Family is traveling to the hospital today, likely 1 to [address] with Dr. Boyer hospitalist managing the patient's care. From a medical standpoint he is optimized for surgery if they decide to proceed. (2) Right shoulder injury: Patient without any focal tenderness over the AC joint. X-ray shows likely chronic AC separation. More tenderness is present over the humeral head however no fracture is present. Will discuss with Dr. Crawford. History of Present Illness Attending Physician: Quan Boyer MD History of Present Illness History obtained from nursing and case liner at [facility], as well as patient's grand daughter Iveth. Patient seen in bed this morning. This is a 69 year old male with a past medical history of dementia, parkinson disease, history kidney transplant, diabetes, coronary artery disease, who was sent to the emergency department from [facility] last night for increasing altered mental status. According to the nurse at [facility], he had fallen a few days prior at [facility] and xrays were negative. He was sent to the ER yesterday for increasing altered mental status. Apparently he goes to [facility] for short stays when he has UTI's, which was why he was at [facility] several weeks ago. He normally lives with his Edie and grand daughter at home. Per Tia, he does not ambulate much and is generally in a wheelchair. He does stand and pivot with assistance. His granddaughter states that he has "good days and bad days" and having transient altered mental status is not abnormal for him. Orthopedic service was consulted as the patient was found to have a right hip fracture based on x-ray and likely old appearing grade 3 AC separation. Patient states he is currently having low back pain on both sides. He denies any hip pain. He does not take any blood thinners. Edie - [phone] Grand daughter - Tia [phone] Allergies Allergy/AdvReac Type Severity Reaction Status Date / Time No Known Allergies Allergy Unverified 07/31/24 20:14 Home Medications Medication Instructions Recorded Confirmed Type acetaminophen 325 mg tablet 650 mg PO Q6H PRN ELEVATED 07/31/24 07/31/24 History TEMPERATURE >101 acetaminophen 325 mg tablet 650 mg PO Q6H PRN PANCHO LEVEL 1-3 07/31/24 07/31/24 History ON A SCALE OF 1-10 acetaminophen 325 mg tablet 650 mg PO Q6H PRN Pain (Scale 07/31/24 07/31/24 History Score 1-10) amlodipine 10 mg tablet 10 mg PO DAILY 07/31/24 07/31/24 History aspirin 81 mg chewable tablet 81 mg PO DAILY 07/31/24 07/31/24 History atorvastatin 80 mg tablet 80 mg PO DAILY 07/31/24 07/31/24 History bisacodyl 10 mg rectal suppository 10 mg [place] Q48H PRN Constipation 07/31/24 07/31/24 History (Dulcolax (bisacodyl)) carbidopa 25 mg-levodopa 100 mg 2 tab PO QID 07/31/24 07/31/24 History tablet carvedilol 25 mg tablet 25 mg PO BID 07/31/24 07/31/24 History cinacalcet 60 mg tablet 60 mg PO DAILY 07/31/24 07/31/24 History cyanocobalamin (vitamin B-12) 500 500 mcg PO DAILY 07/31/24 07/31/24 History mcg tablet dextrose 40 % oral gel 1 ea PO USEASDIRECTD PRN 07/31/24 07/31/24 History HYPOGLYCEMIA BLOOD GLUCOSE LESS THAN 60 donepezil 10 mg tablet 10 mg PO DAILY 07/31/24 07/31/24 History duloxetine 30 mg capsule,delayed 30 mg PO Q12H 07/31/24 07/31/24 History release sprinkle entacapone 200 mg tablet 200 mg PO TID 07/31/24 07/31/24 History ferrous sulfate 325 mg (65 mg 325 mg PO DAILY 07/31/24 07/31/24 History iron) tablet fluticasone propionate 50 2 spray intranasal DAILY PRN 07/31/24 07/31/24 History mcg/actuation nasal Congestion spray,suspension folic acid 1 mg tablet 1 mg PO DAILY 07/31/24 07/31/24 History glucagon HCl 1 mg solution for 1 mg IM Q15M PRN HYPOGLYCEMIA 07/31/24 07/31/24 History injection (Glucagon (HCl) BLOOD GLUCOSE <60 AND SYMPTOMATIC Emergency Kit) insulin glargine 100 unit/mL (3 8 unit subcut HS 07/31/24 07/31/24 History mL) subcutaneous pen (Lantus Solostar U-100 Insulin) insulin lispro 100 unit/mL 0 unit subcut .PERSLIDINGSCALE W/M 07/31/24 07/31/24 History subcutaneous pen (Humalog KwikPen (U-100) Insulin) insulin lispro 100 unit/mL 4 unit subcut .SEERXINSTRUCTIONS 07/31/24 07/31/24 History subcutaneous pen (Humalog KwikPen (U-100) Insulin) levothyroxine 137 mcg tablet 137 mcg PO DAILY 07/31/24 07/31/24 History loratadine 10 mg tablet 10 mg PO DAILY 07/31/24 07/31/24 History melatonin 3 mg tablet 12 mg PO HS PRN Insomnia 07/31/24 07/31/24 History memantine 10 mg tablet 10 mg PO Q12H 07/31/24 07/31/24 History nitroglycerin 0.4 mg sublingual 0.4 mg sublingual Q5M PRN Chest 07/31/24 07/31/24 History tablet (Nitrostat) Pain olanzapine 2.5 mg tablet (Zyprexa) 2.5 mg PO Q12H 07/31/24 07/31/24 History omeprazole 40 mg capsule,delayed 40 mg PO BID 07/31/24 07/31/24 History release ondansetron HCl 4 mg tablet 4 mg PO Q8H PRN Nausea 07/31/24 07/31/24 History prednisone 5 mg tablet 5 mg PO DAILY 07/31/24 07/31/24 History quetiapine 25 mg tablet 12.5 mg PO HS 07/31/24 07/31/24 History sennosides 8.6 mg-docusate sodium 1 tab-cap PO HS 07/31/24 07/31/24 History 50 mg tablet (Senna Plus) sodium phosphates 19 gram-7 118 ml [place] Q48H PRN Constipation 07/31/24 07/31/24 History gram/118 mL enema (Enema) tacrolimus 0.5 mg capsule, 0.5 mg PO HS 07/31/24 07/31/24 History immediate-release tacrolimus 1 mg capsule, 1 mg PO DAILY 07/31/24 07/31/24 History immediate-release tamsulosin 0.4 mg capsule (Flomax) 0.8 mg PO DAILY 07/31/24 07/31/24 History thiamine HCl (vitamin B1) 100 mg 100 mg PO DAILY 07/31/24 07/31/24 History tablet torsemide 10 mg tablet 10 mg PO DAILY 07/31/24 07/31/24 History tramadol 50 mg tablet 50 mg PO Q4H PRN HIP PAIN 07/31/24 07/31/24 History tramadol 50 mg tablet 50 mg PO Q4H PRN HIP PAIN SCALE 07/31/24 07/31/24 History 4-10 trazodone 150 mg tablet 75 mg PO HS 07/31/24 07/31/24 History Patient History Medical History Hyperlipidemia Stenosis of right carotid artery Social History Smoking Status: Unknown if ever smoked Hx Alcohol Use: No Hx Substance Use: No Preferred Language: Macedonian Joiner Required: No Beliefs That Will Affect Care: None Feels Safe at Home: Yes Physical Exam Constitutional: Laying supine in bed. Mildly uncomfortable appearing. Gazing at the window, does not make eye contact. Cardiovascular: Right and left PT pulses with strong doppler signal. There are no palpable pulses present. Musculoskeletal: Able to initiate movement in bilateral upper extremities though is globally decreased. Right upper extremity: There is focal tenderness over the humeral head with no swelling or ecchymosis. No tenderness at the deformity of the AC joint. No skin tenting or open wounds. Range of motion globally decreased in the extremity and unable to assess shoulder range of motion. Right lower extremity is shortened and externally rotated. Able to move toes on bilateral feet and initiate active plantarflexion and dorsiflexion. Plantarflexion and dorsiflexion is 4 out of 5 on the right compared to 5 out of 5 on the left. Right ankle inversion and eversion is lacking. No definitive tenderness in the back Neurologic: Decreased sensation in bilateral feet to light touch. Sensation is present and normal from the mid bilateral lower legs into the thighs. Alert to person. Not alert to place or year. Psychiatric: Patient responds to questions when they directed towards him. At times he mumbles for an answer. Results & Data Vital Signs (Past 12 Hours) Vital Signs Temp Pulse Resp BP Pulse Ox O2 Del Method 08/01/24 07:51 98.6 F 73 18 152/69 H 97 Room Air 08/01/24 01:01 97.5 F L 73 16 186/74 H 97 Room Air 08/01/24 00:24 74 18 161/77 H 99 Room Air 07/31/24 23:30 75 18 148/80 H 96 Room Air Diagnostic Findings Chest X-Ray 07/31/24 17:02 Clinical History: Fall Technique: 2 frontal views of the chest were obtained Findings: There are no confluent pulmonary infiltrates. The heart size is within normal limits. No pleural effusion or pneumothorax is seen. There is a suspected small calcified granuloma in the left midlung No fracture is noted. There is a right chest wall port with its tip at the junction of the SVC and right atrium Impression: No active disease Electronically signed by Mahendra Davey 07-31-2024 7:09 PM Femur X-Ray 07/31/24 17:03 Clinical History: Fall 8 views of the right femur are submitted for review. Findings: No fracture or dislocation is seen. No significant arthritic changes are noted. No other osseous abnormality is identified. There are no radiopaque foreign bodies. Impression: No definite fracture is seen. If pain persists, CT could be considered Electronically signed by Mahendra Davey 07-31-2024 7:12 PM Pelvis X-Ray 07/31/24 17:03 PELVIS AND RIGHT FEMUR RADIOGRAPHS CLINICAL HISTORY: Fall. COMPARISON: None FINDINGS: There is an acute nondisplaced intertrochanteric fracture within the right femur. No additional right femoral fractures are present. There are no fractures within the pelvis or left hip. Incidental note is made of avascular necrosis of the left femoral head. IMPRESSION: 1. Acute nondisplaced intertrochanteric fracture within the right femur. 2. Avascular necrosis of the left femoral head. ACT 112: Negative or not required by law. Electronically signed by: Az Bhandari M.D. 08/01/2024 7:50 AM Shoulder X-Ray 07/31/24 17:04 Clinical History: Fall 2 views of the right shoulder are submitted for review. Findings: No definite acute fracture is seen. There is superior displacement of the clavicle with respect to the acromion and coracoid process, with associated chronic heterotopic ossification. No other osseous abnormality is identified. There are no radiopaque foreign bodies. Impression: Grade 3 acromioclavicular separation, likely old Electronically signed by Mahendra Davey 07-31-2024 7:10 PM (1) Right femoral fracture Encounter type: initial encounter Femur location: intertrochanteric Fracture alignment: nondisplaced Fracture type: closed Qualified Code(s): S72.144A - Nondisplaced intertrochanteric fracture of right femur, initial encounter for closed fracture
--- NOTE | 2024-08-01 14:17 | Electrocardiogram Report ---
Test Reason : Blood Pressure : */* mmHG Vent. Rate : 68 BPM Atrial Rate : 68 BPM P-R Int : 168 ms QRS Dur : 112 ms QT Int : 416 ms P-R-T Axes : 29 17 36 degrees QTcB Int : 442 ms Normal sinus rhythm Poor R wave progression, consider anterior VT vs. lead placement vs. LVH Abnormal ECG No previous ECGs available Confirmed by Marquise French ([id number]) on 08/01/2024 2:16:48 PM Referred By: [facility] Confirmed By: Marquise French
[2024-08-01] MEDS: LACTATED RINGER'S 1,000 ML IV SCH (14:20)
--- NOTE | 2024-08-01 16:55 | CT Scan Report ---
Exam(s): CT ABDOMEN + PELVIS With Contrast IV Amt: 90 ML OPTIRAY 320 EXAM: CT Abdomen and Pelvis With Intravenous Contrast CLINICAL HISTORY: Reason for exam: fall. TECHNIQUE: Axial computed tomography images of the abdomen and pelvis with intravenous contrast. CTDI is 28 mGy and DLP is 1451 mGy-cm. Automated exposure control was utilized for the study. A dose lowering technique was utilized adhering to the principles of ALARA. CONTRAST: Patient received 90 ML OPTIRAY 320 of IV contrast COMPARISON: No relevant prior studies available. FINDINGS: Lung bases: Unremarkable. No mass. No consolidation. ABDOMEN: Liver: Unremarkable. No mass. Gallbladder and bile ducts: There is a 1.7 cm thick layer of 2-3 mm calcific gallstones filling a nondilated gallbladder. No biliary duct dilation or choledocholithiasis is seen. Pancreas: Unremarkable. No mass. No ductal dilation. Spleen: Unremarkable. No splenomegaly. Adrenals: Unremarkable. No mass. Kidneys and ureters: The [place] kidneys are moderately atrophic. There is a right lower quadrant transplant kidney with mild hydronephrosis. No ureterolithiasis is seen. Stomach and bowel: Unremarkable. No obstruction. No mucosal thickening. PELVIS: Appendix: No findings to suggest acute appendicitis. Bladder: The urinary bladder is fully distended but nondilated. Reproductive: Unremarkable as visualized. ABDOMEN and PELVIS: Intraperitoneal space: Bowel loops are nondilated. No pneumoperitoneum, free fluid, or acute inflammatory changes are seen involving the bowel. Bones/joints: There is a acute nondisplaced fracture of the intertrochanteric proximal right femur. Mild to moderate multilevel degenerative changes throughout the spine. No acute fracture or subluxation is seen. Subchondral sclerosis involving the left femoral head consistent with subchondral cysts, less likely avascular necrosis. Soft tissues: Unremarkable. Vasculature: The abdominal aorta is severely calcified but nondilated. There is no aneurysm or dissection. Lymph nodes: Unremarkable. No enlarged lymph nodes. IMPRESSION: 1. The [place] kidneys are moderately atrophic. There is a right lower quadrant transplant kidney with mild hydronephrosis. No ureterolithiasis is seen. 2. There is a acute nondisplaced fracture of the intertrochanteric proximal right femur. 3. There is a 1.7 cm thick layer of 2-3 mm calcific gallstones filling a nondilated gallbladder. No biliary duct dilation or choledocholithiasis is seen. 4. Bowel loops are nondilated. No pneumoperitoneum, free fluid, or acute inflammatory changes are seen involving the bowel. Electronically signed by: Joshua Vazquez MD 07/31/24 21:55 PM
--- NOTE | 2024-08-01 16:58 | CT Scan Report ---
Exam(s): CT C SPINE EXAM: CT Cervical Spine Without Intravenous Contrast CLINICAL HISTORY: Reason for exam: FALL. TECHNIQUE: Axial computed tomography images of the cervical spine without intravenous contrast. CTDI is 28 mGy and DLP is 1451 mGy-cm. Automated exposure control was utilized for the study. A dose lowering technique was utilized adhering to the principles of ALARA. COMPARISON: No relevant prior studies available. FINDINGS: Vertebrae: Endplate flattening and osteophyte formation, degenerative. No acute fracture. Discs/spinal canal/neural foramina: Severe degenerative disc disease C4- 5, C5-6 and C6-7. Soft tissues: Moderate atherosclerosis bilateral carotid bifurcations.. IMPRESSION: 1. No fracture or acute bony abnormality. Electronically signed by: Etta Myles M.D. 07/31/24 21:01 PM
--- NOTE | 2024-08-01 16:58 | CT Scan Report ---
Exam(s): CT HEAD Without Contrast EXAM: CT Head Without Intravenous Contrast CLINICAL HISTORY: Reason for exam: FALL. TECHNIQUE: Axial computed tomography images of the head/brain without intravenous contrast. CTDI is 28 mGy and DLP is 1451 mGy-cm. Automated exposure control was utilized for the study. A dose lowering technique was utilized adhering to the principles of ALARA. Mild motion artifact. COMPARISON: None. FINDINGS: Brain: No mass effect or acute infarct. No acute hemorrhage. Moderate atrophy and chronic white matter disease. Ventricles: No hydrocephalus or midline shift. Bones/joints: No skull fracture. Soft tissues: No scalp hematoma. Visualized Sinuses: Clear. Mastoid air cells: No mastoid effusion. IMPRESSION: 1. Moderate age-related findings. 2. No skull fracture, bleed, or acute intracranial abnormality. Electronically signed by: Etta Myles M.D. 07/31/24 20:55 PM
[2024-08-01] MEDS: ceFAZolin 2,000 MG/15 ML IV PUSH IV ONE (17:01)
[2024-08-01] MEDS: TRANEXAMIC ACID / 0.7% NACL 1000MG/100ML BAG IV ONE (17:01)
[2024-08-01] MEDS: TRANEXAMIC ACID / 0.7% NACL 1,000 MG/100 ML BAG IV SCH (17:01)
[2024-08-01] MEDS: ceFAZolin 2000MG 2,000 MG/15 ML SYR IV SCH (17:01)
--- NOTE | 2024-08-01 18:52 | Hospitalist Progress Note ---
Date of Service August 01, 2024 Assessment & Plan (1) Pathological fracture due to age-related osteoporosis: Plan: right hip fracture s/p fall at [facility] appreciate [facility] consultation and their extensive discussions they had with Mr Munroe's family at this time nonoperative Rx for the hip fracture advised I agree with such formal palliative care consult requested focus on pain control with morphine IV may need long-acting pain med such as fentanyl patch monitor (2) Right femoral fracture: Plan: as above in #1 nonoperative Rx (3) Parkinson disease: Plan: advanced (4) Dementia: Plan: severe/advanced with failure to thrive over the last year, numerous hospitalizations at [facility] in [place], etc. now with right-sided hip fracture as above (5) Diabetes: Plan: cont basal-bolus insulin for now, but if we transition to full comfort care pathway will stop all insulins, BSG checks, etc. (6) History of kidney transplant: Plan: typically on Tacrolimus + prednisone cont both for now I did give "stress dose" prednisone this am (20mg in total) (7) Stenosis of right carotid artery: Plan: 80-90% based on past imaging (8) Aortic stenosis: Plan: moderate based on past echo (9) CAD (coronary artery disease): Plan: moderate disease based on cardiac cath - 12/2023 (10) BPH (benign prostatic hyperplasia): Plan: palacio in place (11) Acute metabolic encephalopathy: Plan: ?UTI ?acute or subacute CVA ?due to advanced dementia combo of factors? will increase his zyprexa to 5mg BID (typically he is on 2.5mg BID) also he takes seroquel in addition to zyprexa?? (12) Failure to thrive in adult: Plan: severe progressive ongoing, last 1-2 years (13) Hyperparathyroidism: Plan: presenting total calcium was 10.7 now 10.2 this am cont cinacalcet for now (14) Hypothyroidism: Plan: last TSH? cont synthroid defer TSH check if family opts for full comfort care measures (which they are leaning towards) Plan keep NPO for now he is too sedated to take any diet by mouth /daughter updated at bedside Admission and Anticipated Discharge Date Admission Date: July 31, 2024 Subjective pt's & daughter (and grand-daughter) were present at bedside during the visit they all live about 1-2 hours away they met earlier in the afternoon with Dr Crawford from [facility] after much discussion Dr Crawford recommended a nonoperative approach to his right hip fracture his surgical risk was deemed very high and operative repair likely would not improve his quality of life during my visit (late afternoon) the pt's family was still present they report frequent hospital admissions to [facility] since early 2023 I do not have records from those admissions, but one admission spanned weeks- months in duration he has been in/out of the hospital sometimes on a monthly basis after a recent stay at [facility] he was admitted to [facility] even on a "good day" he would sleep much of the day not only physically but mental-status sanchez he has had continued decline for months does report significant worsening of his mental status with UTIs Review of Systems Review of Systems: Unobtainable due to cognitive status during my exam one-time he woke up stating "put my head down"; he seemed uncomfortable due to pain from the right hip fracture Physical Exam Physical Exam: gen - lethargic, only woke up 1x during the entire encounter/visit mouth - MM dry neck - no JVD heart - RRR, s1 s2, 2-3/6 holosystolic murmur RUSB lungs - CTA b/l anteriorly abd - soft NT ND BS+ ext - right leg is shortened vs the left leg; right leg flexed and externally rotated; no edema; foot pulses 2+ b/l psych - a/o x 0 Results & Data Results & Data Vital Signs (Past 12 Hours) Vital Signs Temp Pulse Resp BP Pulse Ox O2 Del Method 08/01/24 16:12 36.5 C 68 16 168/75 H 96 Room Air 08/01/24 07:51 37.0 C 73 18 152/69 H 97 Room Air 08/01/24 07:10 Room Air Laboratory Results Laboratory Results - last 24 hr 08/01/24 08/01/24 08/01/24 05:48 05:50 06:05 WBC 3.35 L RBC 3.86 L Hgb 11.1 L Hct 34.4 L MCV 89.1 MCH 28.8 MCHC 32.3 RDW Std Deviation 49.7 H RDW Coeff of Courtney 15.2 H Plt Count 151 MPV 10.5 Sodium 142 Potassium 4.1 Chloride 105 Carbon Dioxide 30 Anion Gap 7 BUN 31 H Creatinine 1.15 Est Cr Clr Drug Dosing 66.4 eGFR 69.75 BUN/Creatinine Ratio 27.0 H Glucose 307 H* POC Glucose 308 H* 307 H* Calcium 10.2 08/01/24 08/01/24 08/01/24 12:36 13:16 13:19 WBC RBC Hgb Hct MCV MCH MCHC RDW Std Deviation RDW Coeff of Courtney Plt Count MPV Sodium Potassium Chloride Carbon Dioxide Anion Gap BUN Creatinine Est Cr Clr Drug Dosing eGFR BUN/Creatinine Ratio Glucose POC Glucose 273 H 341 H* 278 H Calcium 08/01/24 08/01/24 16:58 23:26 WBC RBC Hgb Hct MCV MCH MCHC RDW Std Deviation RDW Coeff of Courtney Plt Count MPV Sodium Potassium Chloride Carbon Dioxide Anion Gap BUN Creatinine Est Cr Clr Drug Dosing eGFR BUN/Creatinine Ratio Glucose POC Glucose 260 H 288 H Calcium PG Care Time/CCT Total # of Minutes Spent Total Time Spent with Patient: Total time spent is greater than 50% in coordination of care (as documented) at patient's floor/unit and/or counseling patient: Coding Level of Care Code 39627 SUB INP/OBS CARE 3/50MIN Diagnoses Pathological fracture due to age-related osteoporosis M80.00XA Right femoral fracture S72.144A Encounter type: initial encounter Femur location: intertrochanteric Fracture alignment: nondisplaced Fracture type: closed Parkinson disease G20.A1 Dementia F03.90 Diabetes E11.9 History of kidney transplant Z94.0 Stenosis of right carotid artery I65.21 Aortic stenosis I35.0 CAD (coronary artery disease) I25.10 BPH (benign prostatic hyperplasia) N40.0 Acute metabolic encephalopathy G93.41 Failure to thrive in adult R62.7 Hyperparathyroidism E21.3 Hypothyroidism E03.9 (2) Right femoral fracture Encounter type: initial encounter Femur location: intertrochanteric Fracture alignment: nondisplaced Fracture type: closed Qualified Code(s): S72.144A - Nondisplaced intertrochanteric fracture of right femur, initial encounter for closed fracture
[2024-08-01] MEDS: OLANZapine 5 MG TABLET PO SCH (19:34)
[2024-08-01] MEDS: QUEtiapine FUMARATE 25 MG TABLET PO SCH (19:36)
[2024-08-01] MEDS: TACROLIMUS 0.5 MG CAP PO SCH (19:36)
[2024-08-01] MEDS ORDERED: traZODone HCL 50 MG TAB PO SCH (21:00)
[2024-08-02] MEDS ORDERED: TRANEXAMIC ACID 100 MG/ML 10 ML VIAL IV SCH (06:00)
[2024-08-02] MEDS: MoRPHine SULFATE 2 MG/ML CARP IV PRN (08:50)
--- NOTE | 2024-08-02 09:48 | Palliative Care Consultation ---
Date of Consultation August 02, 2024 Assessment & Plan (1) Altered mental status: (2) Weakness generalized: (3) Dementia: (4) Discussion about advance care planning held with family member: 30 min telemed video and audio family meeting for ACP with , grand daughter and son clinical issues reviewed they advised me they want comfort as focus would like return to SNF they live 2 hr away and driving here everyday is a hardship is very sad by his decline, worries if he can have enough care and support at snf we discussed hospie - I provided education about the hospice benefit: an interdisciplinary program offered by nurses, nurses aides, social workers, chaplains and a medical front desk specialist for patients with a terminal condition and a life expectancy of less than 6 months. This is covered by Medicare at 100%/no out of pocket expense to patient and all meds/supplies needed by patient for the reason they are on hospice are paid for/covered by hospice. The goal is assure quality of life of the patient in their home setting (home, custodial, inpatient hospice setting) by providing symptoms management, psychosocial and spiritual support. However, they cannot offer 24 hours care and if the family is unable to provide that care, they will have to consider personal care with out of pocket cost vs. custodial placement. We discussed the goals of hospice as a patient service and the goals of care; we discussed EOL trajectories and transitions talya the emotional impact of realizing mortality as a concrete reality from prior abstract considerations. Pt was reassured that no matter where they are along this trajectory, they are not alone - their medical team will remain by their side through their journey. Discussed the pros/cons of accepting help when especially weakened and distressed by pain-which would also help provide relief/decrease caregiver burden/strain. they would like hospice at snf care teams notified (5) Palliative care by specialist: Introduced Palliative Medicine and explained our role in patient's care. Patient and/or family were receptive to palliative services for goals of care discussions. Reviewed we are different from hospice, a home health nurse visiting service. Plan as above Thank you for allowing us to participate in the ongoing care of this patient. Please page with any additional concerns. Parag Garcia DNP Director, Palliative Medicine History of Present Illness Attending Physician: Quan Boyer MD History of Present Illness advancing dementia non operable hip fx declining ps family is 2 hours away familial MEN1 unable to give hpi Chart Review: Case management note: Patient opened to with LACE score of 11. Patient also came from [facility]. Attempted to meet with patient at bedside this AM but he was very confused. Met with , Edie [phone], granddaughter Iveth [phone], and patient's daughter at bedside this afternoon. Patient has had a significant decline in his health, specifically his dementia and parkinson's, over the past several months. Normally, patient lives with his in a 2nd story apartment with 4 [address] from outside. There is a chair lift to get to the second floor. Patient ambulates with a walker but also frequently utilizes a wheelchair. He has home O2 2L HS that was provided by [employer] but reportedly has not been using it for quite awhile. Patient had home health services for therapy but family could not recall the company. Patient resides in [place], [place]. Granddaughter, Iveth, was in the process of getting approved to be his paid caregiver. Patient was sent to [facility] with a UTI last month. On discharge, he was sent to [facility] for potential LTC placement just before . At [facility], he is essentially dependent with care. verbalized that she had been helping him at home quite a bit over the last few months with dressing, bathing, and feeding. Spoke with Emani at [facility]; patient is a bed hold there. Per family, plan will be to return to [facility] on discharge. Patient to OR for femur fracture repair. Role of immigration case worker explained to family. CM will continue to follow. Allergies Allergy/AdvReac Type Severity Reaction Status Date / Time No Known Allergies Allergy Unverified 07/31/24 20:14 Home Medications Medication Instructions Recorded Confirmed Type acetaminophen 325 mg tablet 650 mg PO Q6H PRN ELEVATED 07/31/24 07/31/24 History TEMPERATURE >101 acetaminophen 325 mg tablet 650 mg PO Q6H PRN PANCHO LEVEL 1-3 07/31/24 07/31/24 History ON A SCALE OF 1-10 acetaminophen 325 mg tablet 650 mg PO Q6H PRN Pain (Scale 07/31/24 07/31/24 History Score 1-10) amlodipine 10 mg tablet 10 mg PO DAILY 07/31/24 07/31/24 History aspirin 81 mg chewable tablet 81 mg PO DAILY 07/31/24 07/31/24 History atorvastatin 80 mg tablet 80 mg PO DAILY 07/31/24 07/31/24 History bisacodyl 10 mg rectal suppository 10 mg ID Q48H PRN Constipation 07/31/24 07/31/24 History (Dulcolax (bisacodyl)) carbidopa 25 mg-levodopa 100 mg 2 tab PO QID 07/31/24 07/31/24 History tablet carvedilol 25 mg tablet 25 mg PO BID 07/31/24 07/31/24 History cinacalcet 60 mg tablet 60 mg PO DAILY 07/31/24 07/31/24 History cyanocobalamin (vitamin B-12) 500 500 mcg PO DAILY 07/31/24 07/31/24 History mcg tablet dextrose 40 % oral gel 1 ea PO USEASDIRECTD PRN 07/31/24 07/31/24 History HYPOGLYCEMIA BLOOD GLUCOSE LESS THAN 60 donepezil 10 mg tablet 10 mg PO DAILY 07/31/24 07/31/24 History duloxetine 30 mg capsule,delayed 30 mg PO Q12H 07/31/24 07/31/24 History release sprinkle entacapone 200 mg tablet 200 mg PO TID 07/31/24 07/31/24 History ferrous sulfate 325 mg (65 mg 325 mg PO DAILY 07/31/24 07/31/24 History iron) tablet fluticasone propionate 50 2 spray intranasal DAILY PRN 07/31/24 07/31/24 History mcg/actuation nasal Congestion spray,suspension folic acid 1 mg tablet 1 mg PO DAILY 07/31/24 07/31/24 History glucagon HCl 1 mg solution for 1 mg IM Q15M PRN HYPOGLYCEMIA 07/31/24 07/31/24 History injection (Glucagon (HCl) BLOOD GLUCOSE <60 AND SYMPTOMATIC Emergency Kit) insulin glargine 100 unit/mL (3 8 unit subcut HS 07/31/24 07/31/24 History mL) subcutaneous pen (Lantus Solostar U-100 Insulin) insulin lispro 100 unit/mL 0 unit subcut .PERSLIDINGSCALE W/M 07/31/24 07/31/24 History subcutaneous pen (Humalog KwikPen (U-100) Insulin) insulin lispro 100 unit/mL 4 unit subcut .SEERXINSTRUCTIONS 07/31/24 07/31/24 History subcutaneous pen (Humalog KwikPen (U-100) Insulin) levothyroxine 137 mcg tablet 137 mcg PO DAILY 07/31/24 07/31/24 History loratadine 10 mg tablet 10 mg PO DAILY 07/31/24 07/31/24 History melatonin 3 mg tablet 12 mg PO HS PRN Insomnia 07/31/24 07/31/24 History memantine 10 mg tablet 10 mg PO Q12H 07/31/24 07/31/24 History nitroglycerin 0.4 mg sublingual 0.4 mg sublingual Q5M PRN Chest 07/31/24 07/31/24 History tablet (Nitrostat) Pain olanzapine 2.5 mg tablet (Zyprexa) 2.5 mg PO Q12H 07/31/24 07/31/24 History omeprazole 40 mg capsule,delayed 40 mg PO BID 07/31/24 07/31/24 History release ondansetron HCl 4 mg tablet 4 mg PO Q8H PRN Nausea 07/31/24 07/31/24 History prednisone 5 mg tablet 5 mg PO DAILY 07/31/24 07/31/24 History quetiapine 25 mg tablet 12.5 mg PO HS 07/31/24 07/31/24 History sennosides 8.6 mg-docusate sodium 1 tab-cap PO HS 07/31/24 07/31/24 History 50 mg tablet (Senna Plus) sodium phosphates 19 gram-7 118 ml ID Q48H PRN Constipation 07/31/24 07/31/24 History gram/118 mL enema (Enema) tacrolimus 0.5 mg capsule, 0.5 mg PO HS 07/31/24 07/31/24 History immediate-release tacrolimus 1 mg capsule, 1 mg PO DAILY 07/31/24 07/31/24 History immediate-release tamsulosin 0.4 mg capsule (Flomax) 0.8 mg PO DAILY 07/31/24 07/31/24 History thiamine HCl (vitamin B1) 100 mg 100 mg PO DAILY 07/31/24 07/31/24 History tablet torsemide 10 mg tablet 10 mg PO DAILY 07/31/24 07/31/24 History tramadol 50 mg tablet 50 mg PO Q4H PRN HIP PAIN 07/31/24 07/31/24 History tramadol 50 mg tablet 50 mg PO Q4H PRN HIP PAIN SCALE 07/31/24 07/31/24 History 4-10 trazodone 150 mg tablet 75 mg PO HS 07/31/24 07/31/24 History Patient History Medical History (Updated 08/04/24 @ 11:05 by Felisha Garcia, RIOS) Hyperlipidemia Stenosis of right carotid artery Social History Smoking Status: Unknown if ever smoked Hx Alcohol Use: No Hx Substance Use: No Preferred Language: Georgian Communication Ability: Effective Program Specialist Required: No Beliefs That Will Affect Care: None Feels Safe at Home: Yes Assistive Devices: Walker and Wheelchair Review of Systems Review of Systems: Unobtainable due to cognitive status Physical Exam Physical Exam: limited exam restless and non verbal unable to follow commands normal resp effort s1s2, irreg irreg abd soft gen weakness, right hip fx with rle shortening skin pale, warm Results & Data Vital Signs (Past 12 Hours) Vital Signs Temp Pulse Resp BP Pulse Ox O2 Del Method 08/02/24 09:09 36.6 C 74 16 185/70 H 94 Room Air Laboratory Results 08/04/24 08/04/24 08/03/24 Range/Units 07:36 06:44 20:03 WBC (4.8-10.8) K/ul RBC (4.70-6.10) M/uL Hgb (14.0-18.0) g/dl Hct (42.0-52.0) % MCV (80.0-100.0) fL MCH (25.0-34.0) pg MCHC (32.0-36.0) g/dL RDW Std Deviation (36.4-46.3) fL RDW Coeff of Courtney (11.5-14.5) % Plt Count (130-400) K/uL MPV (9.4-12.4) fL Immature Gran % (Auto) % Neut % (Auto) % Lymph % (Auto) % Isabella % (Auto) % Eos % (Auto) % Baso % (Auto) % Neut # (Auto) (1.40-6.50) K/uL Lymph # (Auto) (1.20-3.40) K/uL Isabella # (Auto) (0.11-0.59) K/uL Eos # (Auto) (0.00-0.50) K/uL Baso # (Auto) (0.00-0.20) K/uL Immature Gran # (Auto) (0.01-0.20) K/uL PT (9.0-12.0) Seconds INR (0.9-1.1) APTT (21-31) Seconds PTT Ratio Sodium 139 (136-145) mmol/L Potassium 4.5 (3.5-5.1) mmol/L Chloride 104 (98-107) mmol/L Carbon Dioxide 30 (21-32) mmol/L Anion Gap 5 (3-11) BUN 33 H (6-23) mg/dl Creatinine 1.02 (0.6-1.4) mg/dl Est Cr Clr Drug Dosing 74.8 ml/min eGFR 80.55 BUN/Creatinine Ratio 32.4 H (10-20) Glucose 297 H (70-99(Fasting)) mg/dl POC Glucose 328 H* 118 H (70-99) mg/dl Lactate (0.4-2.0) mmol/L Calcium 10.7 H (8.6-10.3) mg/dl Magnesium (1.7-2.4) mg/dl Total Bilirubin (0.2-1.0) mg/dl Direct Bilirubin (0-0.2) mg/dl AST (13-39) U/L ALT (7-52) U/L Alkaline Phosphatase (34-104) U/L Total Creatine Kinase (30-223) U/L Troponin I High Sens (0-20) pg/ml Total Protein (6.0-8.3) gm/dl Albumin (3.4-5.0) gm/dl Procalcitonin (0-0.5) ng/ml TSH 2.656 (0.300-4.500) uIu/ml Urine Color Urine Appearance (Clear) Urine pH (4.5-7.5) Ur Specific [place] (1.000-1.030) Urine Protein (Negative) Urine Glucose (UA) (Negative) Urine Ketones (Negative) Urine Blood (Negative) Urine Nitrite (Negative) Urine Bilirubin (Negative) Urine Urobilinogen (Negative) Ur Leukocyte Esterase (Negative) Urine WBC (Auto) (0-5) /hpf Urine RBC (Auto) (0-2) /hpf U Hyaline Cast (Auto) (0-2) /lpf U Epithel Cells (Auto) (0-2) /hpf Urine Bacteria (Auto) (None Seen) Urine Yeast (None Prsent) SARS-CoV-2 (PCR) (Negative) Influenza Type A (PCR) (Neg) Influenza Type B (PCR) (Neg) RSV (RT-PCR) (Neg) 08/03/24 08/03/24 08/03/24 Range/Units 16:43 11:31 11:30 WBC (4.8-10.8) K/ul RBC (4.70-6.10) M/uL Hgb (14.0-18.0) g/dl Hct (42.0-52.0) % MCV (80.0-100.0) fL MCH (25.0-34.0) pg MCHC (32.0-36.0) g/dL RDW Std Deviation (36.4-46.3) fL RDW Coeff of Courtney (11.5-14.5) % Plt Count (130-400) K/uL MPV (9.4-12.4) fL Immature Gran % (Auto) % Neut % (Auto) % Lymph % (Auto) % Isabella % (Auto) % Eos % (Auto) % Baso % (Auto) % Neut # (Auto) (1.40-6.50) K/uL Lymph # (Auto) (1.20-3.40) K/uL Isabella # (Auto) (0.11-0.59) K/uL Eos # (Auto) (0.00-0.50) K/uL Baso # (Auto) (0.00-0.20) K/uL Immature Gran # (Auto) (0.01-0.20) K/uL PT (9.0-12.0) Seconds INR (0.9-1.1) APTT (21-31) Seconds PTT Ratio Sodium (136-145) mmol/L Potassium (3.5-5.1) mmol/L Chloride (98-107) mmol/L Carbon Dioxide (21-32) mmol/L Anion Gap (3-11) BUN (6-23) mg/dl Creatinine (0.6-1.4) mg/dl Est Cr Clr Drug Dosing ml/min eGFR BUN/Creatinine Ratio (10-20) Glucose (70-99(Fasting)) mg/dl POC Glucose 125 H 384 H* 363 H* (70-99) mg/dl Lactate (0.4-2.0) mmol/L Calcium (8.6-10.3) mg/dl Magnesium (1.7-2.4) mg/dl Total Bilirubin (0.2-1.0) mg/dl Direct Bilirubin (0-0.2) mg/dl AST (13-39) U/L ALT (7-52) U/L Alkaline Phosphatase (34-104) U/L Total Creatine Kinase (30-223) U/L Troponin I High Sens (0-20) pg/ml Total Protein (6.0-8.3) gm/dl Albumin (3.4-5.0) gm/dl Procalcitonin (0-0.5) ng/ml TSH (0.300-4.500) uIu/ml Urine Color Urine Appearance (Clear) Urine pH (4.5-7.5) Ur Specific [place] (1.000-1.030) Urine Protein (Negative) Urine Glucose (UA) (Negative) Urine Ketones (Negative) Urine Blood (Negative) Urine Nitrite (Negative) Urine Bilirubin (Negative) Urine Urobilinogen (Negative) Ur Leukocyte Esterase (Negative) Urine WBC (Auto) (0-5) /hpf Urine RBC (Auto) (0-2) /hpf U Hyaline Cast (Auto) (0-2) /lpf U Epithel Cells (Auto) (0-2) /hpf Urine Bacteria (Auto) (None Seen) Urine Yeast (None Prsent) SARS-CoV-2 (PCR) (Negative) Influenza Type A (PCR) (Neg) Influenza Type B (PCR) (Neg) RSV (RT-PCR) (Neg) 08/03/24 08/02/24 08/02/24 Range/Units 07:39 20:29 20:28 WBC (4.8-10.8) K/ul RBC (4.70-6.10) M/uL Hgb (14.0-18.0) g/dl Hct (42.0-52.0) % MCV (80.0-100.0) fL MCH (25.0-34.0) pg MCHC (32.0-36.0) g/dL RDW Std Deviation (36.4-46.3) fL RDW Coeff of Courtney (11.5-14.5) % Plt Count (130-400) K/uL MPV (9.4-12.4) fL Immature Gran % (Auto) % Neut % (Auto) % Lymph % (Auto) % Isabella % (Auto) % Eos % (Auto) % Baso % (Auto) % Neut # (Auto) (1.40-6.50) K/uL Lymph # (Auto) (1.20-3.40) K/uL Isabella # (Auto) (0.11-0.59) K/uL Eos # (Auto) (0.00-0.50) K/uL Baso # (Auto) (0.00-0.20) K/uL Immature Gran # (Auto) (0.01-0.20) K/uL PT (9.0-12.0) Seconds INR (0.9-1.1) APTT (21-31) Seconds PTT Ratio Sodium (136-145) mmol/L Potassium (3.5-5.1) mmol/L Chloride (98-107) mmol/L Carbon Dioxide (21-32) mmol/L Anion Gap (3-11) BUN (6-23) mg/dl Creatinine (0.6-1.4) mg/dl Est Cr Clr Drug Dosing ml/min eGFR BUN/Creatinine Ratio (10-20) Glucose (70-99(Fasting)) mg/dl POC Glucose 294 H 342 H* 352 H* (70-99) mg/dl Lactate (0.4-2.0) mmol/L Calcium (8.6-10.3) mg/dl Magnesium (1.7-2.4) mg/dl Total Bilirubin (0.2-1.0) mg/dl Direct Bilirubin (0-0.2) mg/dl AST (13-39) U/L ALT (7-52) U/L Alkaline Phosphatase (34-104) U/L Total Creatine Kinase (30-223) U/L Troponin I High Sens (0-20) pg/ml Total Protein (6.0-8.3) gm/dl Albumin (3.4-5.0) gm/dl Procalcitonin (0-0.5) ng/ml TSH (0.300-4.500) uIu/ml Urine Color Urine Appearance (Clear) Urine pH (4.5-7.5) Ur Specific [place] (1.000-1.030) Urine Protein (Negative) Urine Glucose (UA) (Negative) Urine Ketones (Negative) Urine Blood (Negative) Urine Nitrite (Negative) Urine Bilirubin (Negative) Urine Urobilinogen (Negative) Ur Leukocyte Esterase (Negative) Urine WBC (Auto) (0-5) /hpf Urine RBC (Auto) (0-2) /hpf U Hyaline Cast (Auto) (0-2) /lpf U Epithel Cells (Auto) (0-2) /hpf Urine Bacteria (Auto) (None Seen) Urine Yeast (None Prsent) SARS-CoV-2 (PCR) (Negative) Influenza Type A (PCR) (Neg) Influenza Type B (PCR) (Neg) RSV (RT-PCR) (Neg) 08/02/24 08/02/24 08/02/24 Range/Units 16:47 11:23 09:06 WBC (4.8-10.8) K/ul RBC (4.70-6.10) M/uL Hgb (14.0-18.0) g/dl Hct (42.0-52.0) % MCV (80.0-100.0) fL MCH (25.0-34.0) pg MCHC (32.0-36.0) g/dL RDW Std Deviation (36.4-46.3) fL RDW Coeff of Courtney (11.5-14.5) % Plt Count (130-400) K/uL MPV (9.4-12.4) fL Immature Gran % (Auto) % Neut % (Auto) % Lymph % (Auto) % Isabella % (Auto) % Eos % (Auto) % Baso % (Auto) % Neut # (Auto) (1.40-6.50) K/uL Lymph # (Auto) (1.20-3.40) K/uL Isabella # (Auto) (0.11-0.59) K/uL Eos # (Auto) (0.00-0.50) K/uL Baso # (Auto) (0.00-0.20) K/uL Immature Gran # (Auto) (0.01-0.20) K/uL PT (9.0-12.0) Seconds INR (0.9-1.1) APTT (21-31) Seconds PTT Ratio Sodium (136-145) mmol/L Potassium (3.5-5.1) mmol/L Chloride (98-107) mmol/L Carbon Dioxide (21-32) mmol/L Anion Gap (3-11) BUN (6-23) mg/dl Creatinine (0.6-1.4) mg/dl Est Cr Clr Drug Dosing ml/min eGFR BUN/Creatinine Ratio (10-20) Glucose (70-99(Fasting)) mg/dl POC Glucose 328 H* 199 H 205 H (70-99) mg/dl Lactate (0.4-2.0) mmol/L Calcium (8.6-10.3) mg/dl Magnesium (1.7-2.4) mg/dl Total Bilirubin (0.2-1.0) mg/dl Direct Bilirubin (0-0.2) mg/dl AST (13-39) U/L ALT (7-52) U/L Alkaline Phosphatase (34-104) U/L Total Creatine Kinase (30-223) U/L Troponin I High Sens (0-20) pg/ml Total Protein (6.0-8.3) gm/dl Albumin (3.4-5.0) gm/dl Procalcitonin (0-0.5) ng/ml TSH (0.300-4.500) uIu/ml Urine Color Urine Appearance (Clear) Urine pH (4.5-7.5) Ur Specific [place] (1.000-1.030) Urine Protein (Negative) Urine Glucose (UA) (Negative) Urine Ketones (Negative) Urine Blood (Negative) Urine Nitrite (Negative) Urine Bilirubin (Negative) Urine Urobilinogen (Negative) Ur Leukocyte Esterase (Negative) Urine WBC (Auto) (0-5) /hpf Urine RBC (Auto) (0-2) /hpf U Hyaline Cast (Auto) (0-2) /lpf U Epithel Cells (Auto) (0-2) /hpf Urine Bacteria (Auto) (None Seen) Urine Yeast (None Prsent) SARS-CoV-2 (PCR) (Negative) Influenza Type A (PCR) (Neg) Influenza Type B (PCR) (Neg) RSV (RT-PCR) (Neg) 08/02/24 08/01/24 08/01/24 Range/Units 06:03 23:26 16:58 WBC (4.8-10.8) K/ul RBC (4.70-6.10) M/uL Hgb (14.0-18.0) g/dl Hct (42.0-52.0) % MCV (80.0-100.0) fL MCH (25.0-34.0) pg MCHC (32.0-36.0) g/dL RDW Std Deviation (36.4-46.3) fL RDW Coeff of Courtney (11.5-14.5) % Plt Count (130-400) K/uL MPV (9.4-12.4) fL Immature Gran % (Auto) % Neut % (Auto) % Lymph % (Auto) % Isabella % (Auto) % Eos % (Auto) % Baso % (Auto) % Neut # (Auto) (1.40-6.50) K/uL Lymph # (Auto) (1.20-3.40) K/uL Isabella # (Auto) (0.11-0.59) K/uL Eos # (Auto) (0.00-0.50) K/uL Baso # (Auto) (0.00-0.20) K/uL Immature Gran # (Auto) (0.01-0.20) K/uL PT (9.0-12.0) Seconds INR (0.9-1.1) APTT (21-31) Seconds PTT Ratio Sodium (136-145) mmol/L Potassium (3.5-5.1) mmol/L Chloride (98-107) mmol/L Carbon Dioxide (21-32) mmol/L Anion Gap (3-11) BUN (6-23) mg/dl Creatinine (0.6-1.4) mg/dl Est Cr Clr Drug Dosing ml/min eGFR BUN/Creatinine Ratio (10-20) Glucose (70-99(Fasting)) mg/dl POC Glucose 234 H 288 H 260 H (70-99) mg/dl Lactate (0.4-2.0) mmol/L Calcium (8.6-10.3) mg/dl Magnesium (1.7-2.4) mg/dl Total Bilirubin (0.2-1.0) mg/dl Direct Bilirubin (0-0.2) mg/dl AST (13-39) U/L ALT (7-52) U/L Alkaline Phosphatase (34-104) U/L Total Creatine Kinase (30-223) U/L Troponin I High Sens (0-20) pg/ml Total Protein (6.0-8.3) gm/dl Albumin (3.4-5.0) gm/dl Procalcitonin (0-0.5) ng/ml TSH (0.300-4.500) uIu/ml Urine Color Urine Appearance (Clear) Urine pH (4.5-7.5) Ur Specific [place] (1.000-1.030) Urine Protein (Negative) Urine Glucose (UA) (Negative) Urine Ketones (Negative) Urine Blood (Negative) Urine Nitrite (Negative) Urine Bilirubin (Negative) Urine Urobilinogen (Negative) Ur Leukocyte Esterase (Negative) Urine WBC (Auto) (0-5) /hpf Urine RBC (Auto) (0-2) /hpf U Hyaline Cast (Auto) (0-2) /lpf U Epithel Cells (Auto) (0-2) /hpf Urine Bacteria (Auto) (None Seen) Urine Yeast (None Prsent) SARS-CoV-2 (PCR) (Negative) Influenza Type A (PCR) (Neg) Influenza Type B (PCR) (Neg) RSV (RT-PCR) (Neg) 08/01/24 08/01/24 08/01/24 Range/Units 13:19 13:16 12:36 WBC (4.8-10.8) K/ul RBC (4.70-6.10) M/uL Hgb (14.0-18.0) g/dl Hct (42.0-52.0) % MCV (80.0-100.0) fL MCH (25.0-34.0) pg MCHC (32.0-36.0) g/dL RDW Std Deviation (36.4-46.3) fL RDW Coeff of Courtney (11.5-14.5) % Plt Count (130-400) K/uL MPV (9.4-12.4) fL Immature Gran % (Auto) % Neut % (Auto) % Lymph % (Auto) % Isabella % (Auto) % Eos % (Auto) % Baso % (Auto) % Neut # (Auto) (1.40-6.50) K/uL Lymph # (Auto) (1.20-3.40) K/uL Isabella # (Auto) (0.11-0.59) K/uL Eos # (Auto) (0.00-0.50) K/uL Baso # (Auto) (0.00-0.20) K/uL Immature Gran # (Auto) (0.01-0.20) K/uL PT (9.0-12.0) Seconds INR (0.9-1.1) APTT (21-31) Seconds PTT Ratio Sodium (136-145) mmol/L Potassium (3.5-5.1) mmol/L Chloride (98-107) mmol/L Carbon Dioxide (21-32) mmol/L Anion Gap (3-11) BUN (6-23) mg/dl Creatinine (0.6-1.4) mg/dl Est Cr Clr Drug Dosing ml/min eGFR BUN/Creatinine Ratio (10-20) Glucose (70-99(Fasting)) mg/dl POC Glucose 278 H 341 H* 273 H (70-99) mg/dl Lactate (0.4-2.0) mmol/L Calcium (8.6-10.3) mg/dl Magnesium (1.7-2.4) mg/dl Total Bilirubin (0.2-1.0) mg/dl Direct Bilirubin (0-0.2) mg/dl AST (13-39) U/L ALT (7-52) U/L Alkaline Phosphatase (34-104) U/L Total Creatine Kinase (30-223) U/L Troponin I High Sens (0-20) pg/ml Total Protein (6.0-8.3) gm/dl Albumin (3.4-5.0) gm/dl Procalcitonin (0-0.5) ng/ml TSH (0.300-4.500) uIu/ml Urine Color Urine Appearance (Clear) Urine pH (4.5-7.5) Ur Specific [place] (1.000-1.030) Urine Protein (Negative) Urine Glucose (UA) (Negative) Urine Ketones (Negative) Urine Blood (Negative) Urine Nitrite (Negative) Urine Bilirubin (Negative) Urine Urobilinogen (Negative) Ur Leukocyte Esterase (Negative) Urine WBC (Auto) (0-5) /hpf Urine RBC (Auto) (0-2) /hpf U Hyaline Cast (Auto) (0-2) /lpf U Epithel Cells (Auto) (0-2) /hpf Urine Bacteria (Auto) (None Seen) Urine Yeast (None Prsent) SARS-CoV-2 (PCR) (Negative) Influenza Type A (PCR) (Neg) Influenza Type B (PCR) (Neg) RSV (RT-PCR) (Neg) 08/01/24 08/01/24 08/01/24 Range/Units 06:05 05:50 05:48 WBC 3.35 L (4.8-10.8) K/ul RBC 3.86 L (4.70-6.10) M/uL Hgb 11.1 L (14.0-18.0) g/dl Hct 34.4 L (42.0-52.0) % MCV 89.1 (80.0-100.0) fL MCH 28.8 (25.0-34.0) pg MCHC 32.3 (32.0-36.0) g/dL RDW Std Deviation 49.7 H (36.4-46.3) fL RDW Coeff of Courtney 15.2 H (11.5-14.5) % Plt Count 151 (130-400) K/uL MPV 10.5 (9.4-12.4) fL Immature Gran % (Auto) % Neut % (Auto) % Lymph % (Auto) % Isabella % (Auto) % Eos % (Auto) % Baso % (Auto) % Neut # (Auto) (1.40-6.50) K/uL Lymph # (Auto) (1.20-3.40) K/uL Isabella # (Auto) (0.11-0.59) K/uL Eos # (Auto) (0.00-0.50) K/uL Baso # (Auto) (0.00-0.20) K/uL Immature Gran # (Auto) (0.01-0.20) K/uL PT (9.0-12.0) Seconds INR (0.9-1.1) APTT (21-31) Seconds PTT Ratio Sodium 142 (136-145) mmol/L Potassium 4.1 (3.5-5.1) mmol/L Chloride 105 (98-107) mmol/L Carbon Dioxide 30 (21-32) mmol/L Anion Gap 7 (3-11) BUN 31 H (6-23) mg/dl Creatinine 1.15 (0.6-1.4) mg/dl Est Cr Clr Drug Dosing 66.4 ml/min eGFR 69.75 BUN/Creatinine Ratio 27.0 H (10-20) Glucose 307 H* (70-99(Fasting)) mg/dl POC Glucose 307 H* 308 H* (70-99) mg/dl Lactate (0.4-2.0) mmol/L Calcium 10.2 (8.6-10.3) mg/dl Magnesium (1.7-2.4) mg/dl Total Bilirubin (0.2-1.0) mg/dl Direct Bilirubin (0-0.2) mg/dl AST (13-39) U/L ALT (7-52) U/L Alkaline Phosphatase (34-104) U/L Total Creatine Kinase (30-223) U/L Troponin I High Sens (0-20) pg/ml Total Protein (6.0-8.3) gm/dl Albumin (3.4-5.0) gm/dl Procalcitonin (0-0.5) ng/ml TSH (0.300-4.500) uIu/ml Urine Color Urine Appearance (Clear) Urine pH (4.5-7.5) Ur Specific [place] (1.000-1.030) Urine Protein (Negative) Urine Glucose (UA) (Negative) Urine Ketones (Negative) Urine Blood (Negative) Urine Nitrite (Negative) Urine Bilirubin (Negative) Urine Urobilinogen (Negative) Ur Leukocyte Esterase (Negative) Urine WBC (Auto) (0-5) /hpf Urine RBC (Auto) (0-2) /hpf U Hyaline Cast (Auto) (0-2) /lpf U Epithel Cells (Auto) (0-2) /hpf Urine Bacteria (Auto) (None Seen) Urine Yeast (None Prsent) SARS-CoV-2 (PCR) (Negative) Influenza Type A (PCR) (Neg) Influenza Type B (PCR) (Neg) RSV (RT-PCR) (Neg) 07/31/24 07/31/24 07/31/24 Range/Units 19:43 18:40 17:56 WBC (4.8-10.8) K/ul RBC (4.70-6.10) M/uL Hgb (14.0-18.0) g/dl Hct (42.0-52.0) % MCV (80.0-100.0) fL MCH (25.0-34.0) pg MCHC (32.0-36.0) g/dL RDW Std Deviation (36.4-46.3) fL RDW Coeff of Courtney (11.5-14.5) % Plt Count (130-400) K/uL MPV (9.4-12.4) fL Immature Gran % (Auto) % Neut % (Auto) % Lymph % (Auto) % Isabella % (Auto) % Eos % (Auto) % Baso % (Auto) % Neut # (Auto) (1.40-6.50) K/uL Lymph # (Auto) (1.20-3.40) K/uL Isabella # (Auto) (0.11-0.59) K/uL Eos # (Auto) (0.00-0.50) K/uL Baso # (Auto) (0.00-0.20) K/uL Immature Gran # (Auto) (0.01-0.20) K/uL PT (9.0-12.0) Seconds INR (0.9-1.1) APTT (21-31) Seconds PTT Ratio Sodium (136-145) mmol/L Potassium (3.5-5.1) mmol/L Chloride (98-107) mmol/L Carbon Dioxide (21-32) mmol/L Anion Gap (3-11) BUN (6-23) mg/dl Creatinine (0.6-1.4) mg/dl Est Cr Clr Drug Dosing ml/min eGFR BUN/Creatinine Ratio (10-20) Glucose (70-99(Fasting)) mg/dl POC Glucose (70-99) mg/dl Lactate 1.1 (0.4-2.0) mmol/L Calcium (8.6-10.3) mg/dl Magnesium (1.7-2.4) mg/dl Total Bilirubin (0.2-1.0) mg/dl Direct Bilirubin (0-0.2) mg/dl AST (13-39) U/L ALT (7-52) U/L Alkaline Phosphatase (34-104) U/L Total Creatine Kinase (30-223) U/L Troponin I High Sens (0-20) pg/ml Total Protein (6.0-8.3) gm/dl Albumin (3.4-5.0) gm/dl Procalcitonin (0-0.5) ng/ml TSH (0.300-4.500) uIu/ml Urine Color Dark Yellow Urine Appearance Cloudy A (Clear) Urine pH 6.0 (4.5-7.5) Ur Specific [place] 1.019 (1.000-1.030) Urine Protein 1+ H (Negative) Urine Glucose (UA) 1+ H (Negative) Urine Ketones 1+ H (Negative) Urine Blood Negative (Negative) Urine Nitrite Negative (Negative) Urine Bilirubin Negative (Negative) Urine Urobilinogen Negative (Negative) Ur Leukocyte Esterase 2+ H (Negative) Urine WBC (Auto) >50 H (0-5) /hpf Urine RBC (Auto) 3-5 H (0-2) /hpf U Hyaline Cast (Auto) 3-5 H (0-2) /lpf U Epithel Cells (Auto) 6-10 H (0-2) /hpf Urine Bacteria (Auto) None Seen (None Seen) Urine Yeast Present A (None Prsent) SARS-CoV-2 (PCR) NEGATIVE (Negative) Influenza Type A (PCR) Negative (Neg) Influenza Type B (PCR) Negative (Neg) RSV (RT-PCR) Negative (Neg) 07/31/24 Range/Units 16:45 WBC 3.74 L (4.8-10.8) K/ul RBC 4.23 L (4.70-6.10) M/uL Hgb 12.2 L (14.0-18.0) g/dl Hct 38.0 L (42.0-52.0) % MCV 89.8 (80.0-100.0) fL MCH 28.8 (25.0-34.0) pg MCHC 32.1 (32.0-36.0) g/dL RDW Std Deviation 49.8 H (36.4-46.3) fL RDW Coeff of Courtney 15.1 H (11.5-14.5) % Plt Count 157 (130-400) K/uL MPV 10.5 (9.4-12.4) fL Immature Gran % (Auto) 0.3 % Neut % (Auto) 72.9 % Lymph % (Auto) 16.8 % Isabella % (Auto) 8.6 % Eos % (Auto) 1.1 % Baso % (Auto) 0.3 % Neut # (Auto) 2.73 (1.40-6.50) K/uL Lymph # (Auto) 0.63 L (1.20-3.40) K/uL Isabella # (Auto) 0.32 (0.11-0.59) K/uL Eos # (Auto) 0.04 (0.00-0.50) K/uL Baso # (Auto) 0.01 (0.00-0.20) K/uL Immature Gran # (Auto) 0.01 (0.01-0.20) K/uL PT 10.5 (9.0-12.0) Seconds INR 1.0 (0.9-1.1) APTT 25 (21-31) Seconds PTT Ratio 0.9 Sodium 142 (136-145) mmol/L Potassium 4.2 (3.5-5.1) mmol/L Chloride 103 (98-107) mmol/L Carbon Dioxide 32 (21-32) mmol/L Anion Gap 7 (3-11) BUN 30 H (6-23) mg/dl Creatinine 1.28 (0.6-1.4) mg/dl Est Cr Clr Drug Dosing 59.6 ml/min eGFR 61.34 BUN/Creatinine Ratio 23.4 H (10-20) Glucose 231 H (70-99(Fasting)) mg/dl POC Glucose (70-99) mg/dl Lactate (0.4-2.0) mmol/L Calcium 10.7 H (8.6-10.3) mg/dl Magnesium 1.7 (1.7-2.4) mg/dl Total Bilirubin 1.0 (0.2-1.0) mg/dl Direct Bilirubin 0.3 H (0-0.2) mg/dl AST 5 L (13-39) U/L ALT < 3 L (7-52) U/L Alkaline Phosphatase 85 (34-104) U/L Total Creatine Kinase 69 (30-223) U/L Troponin I High Sens 14.9 (0-20) pg/ml Total Protein 7.2 (6.0-8.3) gm/dl Albumin 3.9 (3.4-5.0) gm/dl Procalcitonin 0.08 (0-0.5) ng/ml TSH (0.300-4.500) uIu/ml Urine Color Urine Appearance (Clear) Urine pH (4.5-7.5) Ur Specific [place] (1.000-1.030) Urine Protein (Negative) Urine Glucose (UA) (Negative) Urine Ketones (Negative) Urine Blood (Negative) Urine Nitrite (Negative) Urine Bilirubin (Negative) Urine Urobilinogen (Negative) Ur Leukocyte Esterase (Negative) Urine WBC (Auto) (0-5) /hpf Urine RBC (Auto) (0-2) /hpf U Hyaline Cast (Auto) (0-2) /lpf U Epithel Cells (Auto) (0-2) /hpf Urine Bacteria (Auto) (None Seen) Urine Yeast (None Prsent) SARS-CoV-2 (PCR) (Negative) Influenza Type A (PCR) (Neg) Influenza Type B (PCR) (Neg) RSV (RT-PCR) (Neg) Diagnostic Findings Cervical Spine CT 07/31/24 00:00 Exam(s): CT C SPINE EXAM: CT Cervical Spine Without Intravenous Contrast CLINICAL HISTORY: Reason for exam: FALL. TECHNIQUE: Axial computed tomography images of the cervical spine without intravenous contrast. CTDI is 28 mGy and DLP is 1451 mGy-cm. Automated exposure control was utilized for the study. A dose lowering technique was utilized adhering to the principles of ALARA. COMPARISON: No relevant prior studies available. FINDINGS: Vertebrae: Endplate flattening and osteophyte formation, degenerative. No acute fracture. Discs/spinal canal/neural foramina: Severe degenerative disc disease C4- 5, C5-6 and C6-7. Soft tissues: Moderate atherosclerosis bilateral carotid bifurcations.. IMPRESSION: 1. No fracture or acute bony abnormality. Electronically signed by: Etta Myles M.D. 07/31/24 21:01 PM Abdomen/Pelvis CT 07/31/24 17:02 Exam(s): CT ABDOMEN + PELVIS With Contrast IV Amt: 90 ML OPTIRAY 320 EXAM: CT Abdomen and Pelvis With Intravenous Contrast CLINICAL HISTORY: Reason for exam: fall. TECHNIQUE: Axial computed tomography images of the abdomen and pelvis with intravenous contrast. CTDI is 28 mGy and DLP is 1451 mGy-cm. Automated exposure control was utilized for the study. A dose lowering technique was utilized adhering to the principles of ALARA. CONTRAST: Patient received 90 ML OPTIRAY 320 of IV contrast COMPARISON: No relevant prior studies available. FINDINGS: Lung bases: Unremarkable. No mass. No consolidation. ABDOMEN: Liver: Unremarkable. No mass. Gallbladder and bile ducts: There is a 1.7 cm thick layer of 2-3 mm calcific gallstones filling a nondilated gallbladder. No biliary duct dilation or choledocholithiasis is seen. Pancreas: Unremarkable. No mass. No ductal dilation. Spleen: Unremarkable. No splenomegaly. Adrenals: Unremarkable. No mass. Kidneys and ureters: The [place] kidneys are moderately atrophic. There is a right lower quadrant transplant kidney with mild hydronephrosis. No ureterolithiasis is seen. Stomach and bowel: Unremarkable. No obstruction. No mucosal thickening. PELVIS: Appendix: No findings to suggest acute appendicitis. Bladder: The urinary bladder is fully distended but nondilated. Reproductive: Unremarkable as visualized. ABDOMEN and PELVIS: Intraperitoneal space: Bowel loops are nondilated. No pneumoperitoneum, free fluid, or acute inflammatory changes are seen involving the bowel. Bones/joints: There is a acute nondisplaced fracture of the intertrochanteric proximal right femur. Mild to moderate multilevel degenerative changes throughout the spine. No acute fracture or subluxation is seen. Subchondral sclerosis involving the left femoral head consistent with subchondral cysts, less likely avascular necrosis. Soft tissues: Unremarkable. Vasculature: The abdominal aorta is severely calcified but nondilated. There is no aneurysm or dissection. Lymph nodes: Unremarkable. No enlarged lymph nodes. IMPRESSION: 1. The [place] kidneys are moderately atrophic. There is a right lower quadrant transplant kidney with mild hydronephrosis. No ureterolithiasis is seen. 2. There is a acute nondisplaced fracture of the intertrochanteric proximal right femur. 3. There is a 1.7 cm thick layer of 2-3 mm calcific gallstones filling a nondilated gallbladder. No biliary duct dilation or choledocholithiasis is seen. 4. Bowel loops are nondilated. No pneumoperitoneum, free fluid, or acute inflammatory changes are seen involving the bowel. Electronically signed by: Joshua Vazquez MD 07/31/24 21:55 PM Chest X-Ray 07/31/24 17:02 Clinical History: Fall Technique: 2 frontal views of the chest were obtained Findings: There are no confluent pulmonary infiltrates. The heart size is within normal limits. No pleural effusion or pneumothorax is seen. There is a suspected small calcified granuloma in the left midlung No fracture is noted. There is a right chest wall port with its tip at the junction of the SVC and right atrium Impression: No active disease Electronically signed by Mahendra Davey 07-31-2024 7:09 PM Femur X-Ray 07/31/24 17:03 Clinical History: Fall 8 views of the right femur are submitted for review. Findings: No fracture or dislocation is seen. No significant arthritic changes are noted. No other osseous abnormality is identified. There are no radiopaque foreign bodies. Impression: No definite fracture is seen. If pain persists, CT could be considered Electronically signed by Mahendra Davey 07-31-2024 7:12 PM Pelvis X-Ray 07/31/24 17:03 PELVIS AND RIGHT FEMUR RADIOGRAPHS CLINICAL HISTORY: Fall. COMPARISON: None FINDINGS: There is an acute nondisplaced intertrochanteric fracture within the right femur. No additional right femoral fractures are present. There are no fractures within the pelvis or left hip. Incidental note is made of avascular necrosis of the left femoral head. IMPRESSION: 1. Acute nondisplaced intertrochanteric fracture within the right femur. 2. Avascular necrosis of the left femoral head. ACT 112: Negative or not required by law. Electronically signed by: Az Bhandari M.D. 08/01/2024 7:50 AM Shoulder X-Ray 07/31/24 17:04 Clinical History: Fall 2 views of the right shoulder are submitted for review. Findings: No definite acute fracture is seen. There is superior displacement of the clavicle with respect to the acromion and coracoid process, with associated chronic heterotopic ossification. No other osseous abnormality is identified. There are no radiopaque foreign bodies. Impression: Grade 3 acromioclavicular separation, likely old Electronically signed by Mahendra Davey 07-31-2024 7:[address] 07/31/24 19:36 Exam(s): CT HEAD Without Contrast EXAM: CT Head Without Intravenous Contrast CLINICAL HISTORY: Reason for exam: FALL. TECHNIQUE: Axial computed tomography images of the head/brain without intravenous contrast. CTDI is 28 mGy and DLP is 1451 mGy-cm. Automated exposure control was utilized for the study. A dose lowering technique was utilized adhering to the principles of ALARA. Mild motion artifact. COMPARISON: None. FINDINGS: Brain: No mass effect or acute infarct. No acute hemorrhage. Moderate atrophy and chronic white matter disease. Ventricles: No hydrocephalus or midline shift. Bones/joints: No skull fracture. Soft tissues: No scalp hematoma. Visualized Sinuses: Clear. Mastoid air cells: No mastoid effusion. IMPRESSION: 1. Moderate age-related findings. 2. No skull fracture, bleed, or acute intracranial abnormality. Electronically signed by: Etta Myles M.D. 07/31/24 20:55 PM PG Care Time/CCT Total # of Minutes Spent Total Time Spent with Patient: Total time spent is greater than 50% in coordination of care (as documented) at patient's floor/unit and/or counseling patient: I spent 90 minutes overall addressing this case: 15 min in medical data review/discussion with referring provider(s) and/or preparation for the visit 20 min in direct interaction with the patient/exam 30 min in Advance Care Planning/Goals of Care discussions as detailed above in note (must be >16min) 10 min in subsequent review and synthesis of assessment and plan 15 min communicating with other providers regarding the patient's case: nursing, care mgt, primary team Advanced Care Planning 03657 Advanced Care Planning 30 [place] [address] IN/OBS CONSULT LVL 4,60M (25 - SIGNIFICANT, SEPARATELY IDENTIFIABLE ) Patient Type New Diagnoses Altered mental status R41.82 Weakness generalized R53.1 Dementia F03.90 Discussion about advance care planning held with family member Z71.0 Palliative care by specialist Z51.5 Additional Codes Advanced Care Planning - 01610 Advanced Care Planning 30 Min: 26770 Advanced Care Planning 30 Min ([id number])
--- NOTE | 2024-08-02 09:50 | Communication Note ---
Date of Service: August 02, 2024 Brief Note: Patient is not decisional. I attempted to speak with Edie [phone], [facility] re call back and offered times to meet today or Wednesday, either in person or vis [facility] Zoom if preferred. I am in [facility] Clinic on and not available on IP. Thank you for allowing us to participate in the ongoing care of this patient. Please page with any additional concerns. Parag Garcia DNP Director, Palliative Medicine
--- NOTE | 2024-08-02 11:54 | Orthopedic Progress Note ---
Date of Service August 02, 2024 Assessment & Plan (1) Right femoral fracture: Plan: Per Dr. Crawford's extensive conversation yesterday with family, nonoperable decision was made. Was not notified of any changes in that plan today. Palliative consult. Patient still does not appear to be able to make decisions, though his mental status does seem slightly improved today compared to yesterday. Pain control per medicine Ice to hip DVT prophylaxis per medicine Patient should be able to eat as this is nonop. He can be out of bed to chair as tolerated, nonweightbearing right lower extremity. At this time, no need to schedule outpatient follow up given potential hospice status. Admission and Anticipated Discharge Date Admission Date: July 31, 2024 Subjective Patient seen in bed today. No family is present. He reports ongoing pain, however cannot state where the pain is located. He denies any chest pain, shortness of breath, new numbness or tingling in his toes. Physical Exam Constitutional: Sleeping initially in bed. Wakes to verbal stimulus. Communicates more today compared to yesterday Cardiovascular: Right PT pulse 2+ Musculoskeletal: There is tenderness over bilateral lateral hips. Right lower extremity: Right hip without ecchymosis or soft tissue induration. Unable to perform straight leg raise. Strength 4 out of 5 with ankle plantarflexion, dorsiflexion, inversion, eversion. Moves all toes. Neurologic: No sensory deficits in right toes to light touch. Psychiatric: Attempts to answer questions however answers generally are not appropriate for the question. Results & Data Vital Signs (Past 12 Hours) Vital Signs Temp Pulse Resp BP Pulse Ox O2 Del Method 08/02/24 09:09 97.9 F 74 16 185/70 H 94 Room Air Laboratory Results 07/31/24 17:56 Aerobic Blood Culture - Preliminary Blood No growth in Aerobic bottle after 24 hours. Anaerobic Blood Culture - Final 07/31/24 17:57 Aerobic Blood Culture - Preliminary Blood No growth in Aerobic bottle after 24 hours. Anaerobic Blood Culture - Final 07/31/24 19:43 Urine Culture - Preliminary Urine,Straight Cath No growth - Less than 1,000 colonies/mL, Final report to follow. 08/02/24 08/02/24 08/02/24 11:23 09:06 06:03 POC Glucose 199 H 205 H 234 H 08/01/24 08/01/24 08/01/24 23:26 16:58 13:19 POC Glucose 288 H 260 H 278 H 08/01/24 08/01/24 13:16 12:36 POC Glucose 341 H* 273 H (1) Right femoral fracture Encounter type: initial encounter Femur location: intertrochanteric Fracture alignment: nondisplaced Fracture type: closed Qualified Code(s): S72.144A - Nondisplaced intertrochanteric fracture of right femur, initial encounter for closed fracture
[2024-08-02] MEDS: INFLUENZA VACC TS2024-25(65y+)/PF (IIV3) 0.5mL Syr IM ONE (11:59)
[2024-08-02] MEDS: PNEUMOCOCCAL VACCINE (PCV20) 20-VAL CONJ-DIP CRM/PF 0.5 ML SYR IM ONE (12:00)
--- NOTE | 2024-08-02 12:53 | Hospitalist Progress Note ---
Date of Service August 02, 2024 Assessment & Plan (1) Pathological fracture due to age-related osteoporosis: Plan: right hip fracture s/p fall at [facility] appreciate [facility] consultation and their extensive discussions they had with Mr Munroe's family at this time nonoperative Rx for the hip fracture advised surgical risk is VERY HIGH in light of extensive medical history/problems, and overall prognosis is very poor appreciate palliative care consultation by Dr Garcia to transition back to [facility] with hospice in place cont prn morphine IV may need long-acting pain med such as fentanyl patch monitor for such (2) Right femoral fracture: Plan: as above in #1 nonoperative Rx (3) Parkinson disease: Plan: advanced cont PD meds (4) Dementia: Plan: severe/advanced with failure to thrive over the last year, numerous hospitalizations at [facility] in [place], etc. now with right-sided hip fracture as above (5) Diabetes: Plan: cont basal-bolus insulin for now, but if we transition to full comfort care pathway consider stopping all insulins, BSG checks, etc. (6) History of kidney transplant: Plan: typically on Tacrolimus + prednisone cont both for now I did give "stress dose" prednisone this am once again (15mg in total) plan 10mg tomorrow (7) Stenosis of right carotid artery: Plan: 80-90% based on past imaging (8) Aortic stenosis: Plan: moderate based on past echo (9) CAD (coronary artery disease): Plan: moderate disease based on cardiac cath - 12/2023 (10) BPH (benign prostatic hyperplasia): Plan: palacio in place (11) Acute metabolic encephalopathy: Plan: increased his zyprexa to 5mg BID (typically he is on 2.5mg BID) also he takes seroquel in addition to zyprexa?? -- will stop the former (12) Failure to thrive in adult: Plan: severe progressive ongoing, last 1-2 years (13) Hyperparathyroidism: Plan: presenting total calcium was 10.7 now 10.2 cont cinacalcet for now (14) Hypothyroidism: Plan: last TSH? cont synthroid Plan allow clears, then advance as tolerated updated by phone this evening, 08/02 Admission and Anticipated Discharge Date Admission Date: July 31, 2024 Subjective patient much more awake/alert today however, he is confused he initially didn't believe he was in the hospital had to tell him several times that's where he was and that he had broken his right hip (he also didn't believe this) he did c/o right hip pain during the visit asked for a Sprite zero he asked where his & family were denied pain in any other location Review of Systems Review of Systems: CV - no chest pain pulm - no dyspnea GI - no abd pain or N/V Physical Exam Physical Exam: gen - much more awake/alert today, but pleasantly confused mouth - MM moist today neck - no JVD heart - RRR, s1 s2, 2-3/6 holosystolic murmur RUSB lungs - CTA b/l with fine dry rales bases abd - soft NT ND BS+ ext - right leg is shortened vs the left leg; right leg flexed and externally rotated; no edema; foot pulses 2+ b/l psych - a/o to person, year but not place Results & Data Results & Data Vital Signs (Past 12 Hours) Vital Signs Temp Pulse Resp BP Pulse Ox O2 Del Method 08/02/24 09:09 36.6 C 74 16 185/70 H 94 Room Air Laboratory Results Laboratory Results - last 48 hr 08/01/24 08/01/24 08/01/24 12:36 13:16 13:19 POC Glucose 273 H 341 H* 278 H 08/01/24 08/01/24 08/02/24 16:58 23:26 06:03 POC Glucose 260 H 288 H 234 H 08/02/24 08/02/24 08/02/24 09:06 11:23 16:47 POC Glucose 205 H 199 H 328 H* PG Care Time/CCT Total # of Minutes Spent Total Time Spent with Patient: Total time spent is greater than 50% in coordination of care (as documented) at patient's floor/unit and/or counseling patient: Coding Level of Care Code 51659 SUB INP/OBS CARE 2/35MIN Diagnoses Pathological fracture due to age-related osteoporosis M80.00XA Right femoral fracture S72.144A Encounter type: initial encounter Femur location: intertrochanteric Fracture alignment: nondisplaced Fracture type: closed Parkinson disease G20.A1 Dementia F03.90 Diabetes E11.9 History of kidney transplant Z94.0 Stenosis of right carotid artery I65.21 Aortic stenosis I35.0 CAD (coronary artery disease) I25.10 BPH (benign prostatic hyperplasia) N40.0 Acute metabolic encephalopathy G93.41 Failure to thrive in adult R62.7 Hyperparathyroidism E21.3 Hypothyroidism E03.9 (2) Right femoral fracture Encounter type: initial encounter Femur location: intertrochanteric Fracture alignment: nondisplaced Fracture type: closed Qualified Code(s): S72.144A - Nondisplaced intertrochanteric fracture of right femur, initial encounter for closed fracture
[2024-08-02] MEDS: predniSONE 5 MG TAB PO STA (14:17)
[2024-08-02] MEDS: NYSTATIN SUSP 500,000 U/5 ML UDC PO SCH (14:17)
[2024-08-03] MEDS ORDERED: Nursing to Pharmacy Communication SCH (01:00)
[2024-08-03] MEDS: LANTUS PER UNIT CHARGE SQ SCH (08:45)
[2024-08-03] MEDS: INSULIN ASPART PER UNIT CHARGE SC SCH (08:46)
[2024-08-03] MEDS ORDERED: oxyCODONE HCL IR 5 MG TAB (IMMEDIATE RELEASE) PO PRN (14:45)
--- NOTE | 2024-08-03 14:48 | Hospitalist Progress Note ---
Date of Service August 03, 2024 Assessment & Plan (1) Pathological fracture due to age-related osteoporosis: Plan: right hip fracture s/p fall at SNF appreciate [facility] consultation and their extensive discussions they had with Mr Munroe's family at this time nonoperative Rx for the hip fracture advised surgical risk is VERY HIGH in light of extensive medical history/problems, and overall prognosis is very poor appreciate palliative care consultation by Dr Garcia to transition back to [facility] with hospice in place I am concerned - given his confusion/dementia - that he may not ask for prn pain meds when in fact he needs it thus, will start fentanyl patch 12mcg q3days try oxycodone 5mg q4h prn pain cont prn morphine IV for refractory pain (2) Right femoral fracture: Plan: as above in #1 nonoperative Rx (3) Parkinson disease: Plan: advanced cont PD meds (4) Dementia: Plan: severe/advanced with failure to thrive over the last year, numerous hospitalizations at [facility] in [place], etc. now with right-sided hip fracture as above (5) Diabetes: Plan: cont basal-bolus insulin for now will tighten his lantus as well as novolog (6) History of kidney transplant: Plan: typically on Tacrolimus + prednisone cont both for now cont "stress dose" prednisone for now - 10mg today then back to 5mg daily starting tomorrow (7) Stenosis of right carotid artery: Plan: 80-90% based on past imaging (8) Aortic stenosis: Plan: moderate based on past echo (9) CAD (coronary artery disease): Plan: moderate disease based on cardiac cath - 12/2023 (10) BPH (benign prostatic hyperplasia): Plan: palacio in place continue such upon d/c back to SNF (11) Acute metabolic encephalopathy: Plan: increased his zyprexa to 5mg BID (typically he is on 2.5mg BID) also he takes seroquel in addition to zyprexa?? -- I stopped the seroquel given the redundancy (12) Failure to thrive in adult: Plan: severe progressive ongoing, last 1-2 years (13) Hyperparathyroidism: Plan: presenting total calcium was 10.7 then improved to 10.2 cont cinacalcet for now recheck calcium in am and adjust cinacalcet if needed (14) Hypothyroidism: Plan: check TSH am cont synthroid (15) Pressure injury of left heel, unstageable: Plan: appreciate wound care nurse assistance Aquacel Ag, ABD, then julianna At high risk of worsening given bed-bound status would not pursue any surgical intervention given his transition to hospice Plan advance diet to T2DM diet - minced/moist updated by phone 08/02 will update her again tomorrow Admission and Anticipated Discharge Date Admission Date: July 31, 2024 Subjective patient was sleeping upon arrival did wake up to his name being called very confused, shifting from topic to topic, and talking about things that didn't make sense he did c/o right hip/groin pain as well as low back pain no recent stool mentioned something about his and then shifted his talking to another topic Review of Systems Review of Systems: CV - no chest pain pulm - no dyspnea GI - no abd pain or N/V Physical Exam Physical Exam: gen - awake/alert but confused mouth - MMM; thrush improved neck - no JVD heart - RRR, s1 s2, 2-11/30 holosystolic murmur RUSB lungs - CTA b/l abd - soft NT ND BS+ ext - right leg is shortened vs the left leg; right leg flexed and externally rotated; no edema; foot pulses 2+ b/l; waffle boots in place psych - a/o to person only musculo - right shoulder deformity noted Results & Data Results & Data Vital Signs (Past 12 Hours) Vital Signs Temp Pulse Resp BP Pulse Ox O2 Del Method 08/03/24 07:35 36.5 C 63 18 176/69 H 97 Room Air 08/03/24 07:30 Room Air Laboratory Results Laboratory Results - last 24 hr 08/03/24 08/03/24 08/03/24 07:39 11:30 11:31 POC Glucose 294 H 363 H* 384 H* 08/03/24 08/03/24 16:43 20:03 POC Glucose 125 H 118 H PG Care Time/CCT Total # of Minutes Spent Total Time Spent with Patient: Total time spent is greater than 50% in coordination of care (as documented) at patient's floor/unit and/or counseling patient: Coding Level of Care Code 07367 SUB INP/OBS CARE 2/35MIN Diagnoses Pathological fracture due to age-related osteoporosis M80.00XA Right femoral fracture S72.144A Encounter type: initial encounter Femur location: intertrochanteric Fracture alignment: nondisplaced Fracture type: closed Parkinson disease G20.A1 Dementia F03.90 Diabetes E11.9 History of kidney transplant Z94.0 Stenosis of right carotid artery I65.21 Aortic stenosis I35.0 CAD (coronary artery disease) I25.10 BPH (benign prostatic hyperplasia) N40.0 Acute metabolic encephalopathy G93.41 Failure to thrive in adult R62.7 Hyperparathyroidism E21.3 Hypothyroidism E03.9 Pressure injury of left heel, unstageable L89.620 (2) Right femoral fracture Encounter type: initial encounter Femur location: intertrochanteric Fracture alignment: nondisplaced Fracture type: closed Qualified Code(s): S72.144A - Nondisplaced intertrochanteric fracture of right femur, initial encounter for closed fracture
[2024-08-03] MEDS: SENNA 8.6 MG TAB PO SCH (15:12)
[2024-08-03] MEDS: POLYETHYLENE (MIRALAX) 17 GM PACK PO SCH (15:12)
[2024-08-03] MEDS: fentaNYL 12 MCG/HR TDSY TD SCH (15:30)
[2024-08-03] MEDS: CHECK fentaNYL PATCH PLACEMENT SCH (16:17)
--- NOTE | 2024-08-03 16:36 | Orthopedic Progress Note ---
Date of Service August 03, 2024 Assessment & Plan (1) Intertrochanteric fracture of right hip: Plan: Patient is resting in bed. No complaints of pain. Talk to daughter Rhett and he plans on being discharged to hospice back to [facility] in the next day or so. Continued plans for nonsurgical treatment of the right hip fracture. Ice as needed for pain. May be out of bed to chair. Dr. Crawford present for today's visit. Plan is to follow up with Dr. Crawford as needed. Admission and Anticipated Discharge Date Admission Date: July 31, 2024 Subjective Patient is resting in bed. No complaints of pain in his hip today. He is complaining of some low back pain and he just had some pain medication for. Results & Data Vital Signs (Past 12 Hours) Vital Signs Temp Pulse Resp BP Pulse Ox O2 Del Method 08/03/24 15:28 36.3 C L 61 18 113/62 91 Room Air 08/03/24 07:35 36.5 C 63 18 176/69 H 97 Room Air 08/03/24 07:30 Room Air Laboratory Results 08/03/24 08/03/24 08/03/24 Range/Units 11:31 11:30 07:39 POC Glucose 384 H* 363 H* 294 H (70-99) mg/dl 08/02/24 08/02/24 08/02/24 Range/Units 20:29 20:28 16:47 POC Glucose 342 H* 352 H* 328 H* (70-99) mg/dl
[2024-08-03] MEDS: predniSONE 10 MG TABLET PO STA (20:37)
[2024-08-03] MEDS: ACETAMINOPHEN 500 MG TAB PO SCH (21:34)
[2024-08-04] MEDS: MoRPHine SULFATE 4 MG/ML 1 ML CARP\\VIAL IV PRN (02:28)
[2024-08-04 07:23] LABS: BUN Creatinine Ratio 32.4 (10-20); Calcium 10.7 mg/dl (8.6-10.3); Creatinine Clr Calc Pharmacy 74.8 ml/min; Potassium 4.5 mmol/L (3.5-5.1)
[2024-08-04 07:39] LABS: Thyroid Stimulating Hormone 2.656 uIu/ml (0.300-4.500)
[2024-08-04] MEDS: PANTOprazole 40 MG TAB PO SCH (08:29)
[2024-08-04] MEDS: LANTUS PER UNIT CHARGE SQ SCH (08:30)
[2024-08-04] MEDS ORDERED: oxyCODONE HCL IR 5 MG TAB (IMMEDIATE RELEASE) PO PRN (09:02)
--- NOTE | 2024-08-04 13:16 | Palliative Family Discussion ---
Date of Service August 04, 2024 Patient Directed Conference Time of Meetinpm-120pm[facility] Participants: Felisha Garcia DNP Patient participation: no lacks capacity Patient Support System: , dtr, grand daughter Other Healthcare Provider Participation: None Meeting Location: telemed, pt family in their home An ACP meeting was held for BOB RICKS. This meeting was necessary for determining the appropriate course of treatment. Topics of Discussion Topics of Discussion: 1. Pain better with TDF 2. Agitation better / pt calmer 3. [facility] can admit at SNF, poss dc tomorrow Other Content of Meetin. Opportunity given for participants to speak and ask questions. 2. Participants were assured of attention to patient comfort. 3. Reassurance provided. 4. Support was provided for informed, good-gerson decisions. 5. Emotions expressed by family were acknowledged and addressed. 6. Plan of Care: family would like update on times for dc and state they plan to visit Wednesday TS 20min all of this was face to face Zoom audio-visual for ACP Thank you for allowing us to participate in the ongoing care of this patient. Please page with any additional concerns. Parag Garcia DNP Director, Palliative Medicine
[2024-08-04] MEDS: CINACALCET HCL 30 MG TAB PO SCH (16:42)
--- NOTE | 2024-08-04 20:48 | Hospitalist Progress Note ---
Date of Service August 04, 2024 Assessment & Plan (1) Pathological fracture due to age-related osteoporosis: Plan: right hip fracture s/p fall at SNF appreciate [facility] consultation and their extensive discussions they had with Mr Munroe's family at this time nonoperative Rx for the hip fracture advised surgical risk is VERY HIGH in light of extensive medical history/problems, and overall prognosis is very poor appreciate palliative care consultation by Dr Garcia to transition back to [facility] with hospice in place I am concerned - given his confusion/dementia - that he may not ask for prn pain meds when in fact he needs it thus, added fentanyl patch 12mcg q3days - tolerating such and pain improved with such try oxycodone 5mg q4h prn pain or can use roxanol at d/c cont prn morphine IV for refractory pain (2) Right femoral fracture: Plan: as above in #1 nonoperative Rx (3) Parkinson disease: Plan: advanced cont PD meds (4) Dementia: Plan: severe/advanced with failure to thrive over the last year, numerous hospitali zations at [facility] [place], etc. now with right-sided hip fracture as above (5) Diabetes: Plan: cont basal-bolus insulin for now (6) History of kidney transplant: Plan: typically on Tacrolimus + prednisone 5mg/day cont both for now (7) Stenosis of right carotid artery: Plan: 80-90% based on past imaging (8) Aortic stenosis: Plan: moderate based on past echo (9) CAD (coronary artery disease): Plan: moderate disease based on cardiac cath - 12/2023 (10) BPH (benign prostatic hyperplasia): Plan: palacio in place continue such upon d/c back to SNF (11) Acute metabolic encephalopathy: Plan: increased his zyprexa to 5mg BID (typically he is on 2.5mg BID) also he takes seroquel in addition to zyprexa?? -- I stopped the seroquel given the redundancy (12) Failure to thrive in adult: Plan: severe progressive ongoing, last 1-2 years transition to hospice (13) Hyperparathyroidism: Plan: presenting total calcium was 10.7 then improved to 10.2 today 10.7 cont cinacalcet but increase to 60mg am and 30mg pm (14) Hypothyroidism: Plan: TSH wnl cont synthroid (15) Pressure injury of left heel, unstageable: Plan: appreciate wound care nurse assistance Aquacel Ag, ABD, then kerlix At high risk of worsening given bed-bound status would not pursue any surgical intervention given his transition to hospice Plan updated by phone 08/02 and again this evening likely d/c to SNF tomorrow Admission and Anticipated Discharge Date Admission Date: July 31, 2024 Subjective pain in R groin/hip improved with fentanyl patch patient pleasantly confused as previous no other acute events did eat some breakfast this am Review of Systems Review of Systems: CV - denies chest pain pulm - no dyspnea GI - no abd pain Physical Exam Physical Exam: gen - awake/alert but confused; comfortable today mouth - MMM neck - no JVD heart - RRR, s1 s2, 2-3/6 holosystolic murmur RUSB lungs - CTA b/l abd - soft NT ND BS+ ext - right leg is shortened vs the left leg; right leg flexed and externally rotated; no edema; foot pulses 2+ b/l; waffle boots in place psych - a/o to person only Results & Data Results & Data Vital Signs (Past 12 Hours) Vital Signs Temp Pulse Resp BP Pulse Ox O2 Del Method 08/04/24 19:39 36.3 C L 63 14 148/68 H 97 Room Air 08/04/24 15:09 62 18 171/74 H 99 Room Air 08/04/24 09:24 36.3 C L 77 18 170/68 H 92 Room Air Laboratory Results Laboratory Results - last 24 hr 07/31/24 08/04/24 08/04/24 19:43 06:44 07:36 Sodium 139 Potassium 4.5 Chloride 104 Carbon Dioxide 30 Anion Gap 5 BUN 33 H Creatinine 1.02 Est Cr Clr Drug Dosing 74.8 eGFR 80.55 BUN/Creatinine Ratio 32.4 H Glucose 297 H POC Glucose 328 H* Calcium 10.7 H TSH 2.656 Misc Micro Test Pending 08/04/24 08/04/24 11:27 16:51 Sodium Potassium Chloride Carbon Dioxide Anion Gap BUN Creatinine Est Cr Clr Drug Dosing eGFR BUN/Creatinine Ratio Glucose POC Glucose 177 H 150 H Calcium TSH Misc Micro Test PG Care Time/CCT Total # of Minutes Spent Total Time Spent with Patient: Total time spent is greater than 50% in coordination of care (as documented) at patient's floor/unit and/or counseling patient: Coding Level of Care Code 35291 SUB INP/OBS CARE Diagnoses Pathological fracture due to age-related osteoporosis M80.00XA Right femoral fracture S72.144A Encounter type: initial encounter Femur location: intertrochanteric Fracture alignment: nondisplaced Fracture type: closed Parkinson disease G20.A1 Dementia F03.90 Diabetes E11.9 History of kidney transplant Z94.0 Stenosis of right carotid artery I65.21 Aortic stenosis I35.0 CAD (coronary artery disease) I25.10 BPH (benign prostatic hyperplasia) N40.0 Acute metabolic encephalopathy G93.41 Failure to thrive in adult R62.7 Hyperparathyroidism E21.3 Hypothyroidism E03.9 Pressure injury of left heel, unstageable L89.620 (2) Right femoral fracture Encounter type: initial encounter Femur location: intertrochanteric Fracture alignment: nondisplaced Fracture type: closed Qualified Code(s): S72.144A - Nondisplaced intertrochanteric fracture of right femur, initial encounter for closed fracture
[2024-08-04] MEDS: predniSONE 5 MG TAB PO ONE (21:43)
[2024-08-05] MEDS: predniSONE 5 MG TAB PO SCH (08:36)
[2024-08-05] MEDS: MoRPHine SULFATE 4 MG/ML 1 ML CARP\\VIAL IV PRN (08:48)
--- NOTE | 2024-08-05 10:25 | Discharge Summary ---
Discharge Summary Date of Service August 05, 2024 Principal Dx & Hospital Course #1 = Principal Diagnosis (1) Pathological fracture due to age-related osteoporosis: right hip fracture s/p fall at SNF appreciate [facility] consultation and their extensive discussions they had with Mr Munroe's family at this time nonoperative Rx for the hip fracture advised surgical risk is VERY HIGH in light of extensive medical history/problems, and overall prognosis is very poor appreciate palliative care consultation by Dr Garcia to transition back to [facility] with hospice in place I am concerned - given his confusion/dementia - that he may not ask for prn pain meds when in fact he needs it thus, added fentanyl patch 12mcg q3days - tolerating such and pain improved with such try oxycodone 5mg q4h prn pain or can use roxanol at d/c cont prn morphine IV for refractory pain (2) Right femoral fracture: as above in #1 nonoperative Rx (3) Parkinson disease: advanced cont PD meds (4) Dementia: severe/advanced with failure to thrive over the last year, numerous hospitalizations [place] [facility] [place], etc. now with right-sided hip fracture as above (5) Diabetes: cont basal-bolus insulin for now (6) History of kidney transplant: typically on Tacrolimus + prednisone 5mg/day cont both for now (7) Stenosis of right carotid artery: 80-90% based on past imaging (8) Aortic stenosis: moderate based on past echo (9) CAD (coronary artery disease): moderate disease based on cardiac cath - 12/2023 (10) BPH (benign prostatic hyperplasia): palacio in place continue such upon d/c back to [facility] (11) Acute metabolic encephalopathy: increased his zyprexa to 5mg BID (typically he is on 2.5mg BID) also he takes seroquel in addition to zyprexa?? -- I stopped the seroquel given the redundancy (12) Failure to thrive in adult: severe progressive ongoing, last 1-2 years transition to hospice (13) Hyperparathyroidism: presenting total calcium was 10.7 then improved to 10.2 today 10.7 cont cinacalcet but increase to 60mg am and 30mg pm (14) Hypothyroidism: TSH wnl cont synthroid (15) Pressure injury of left heel, unstageable: appreciate wound care nurse assistance Aquacel Ag, ABD, then julianna At high risk of worsening given bed-bound status would not pursue any surgical intervention given his transition to hospice Plan updated by phone 08/02 and again this evening likely d/c to SNF tomorrow Admission HPI Per Admitting Provider Pt is a 69 yo male with PMH of DM, dementia, hx of kidney transplant, parkinson's, HLD, primary hyperparathyroidism, and diastolic heart failure presenting to the hospital d/t ongoing pain after a fall. Pt seen at bedside; he is able to provide limited history. He does note that he had a significant fall a few days ago and now his right leg and shoulder hurt. No family at bedside to provide additional hx. Pt notes his current pain is 5/10. In the ER, pt was ordered pain medications but he did not receive any doses. Discharge Exam gen - awake/alert but confused; comfortable today mouth - MMM neck - no JVD heart - RRR, s1 s2, 2-3/6 holosystolic murmur RUSB lungs - CTA b/l abd - soft NT ND BS+ ext - right leg is shortened vs the left leg; right leg flexed and externally rotated; no edema; foot pulses 2+ b/l; waffle boots in place psych - a/o to person only Discharge Plan Discharge Items Reason For Visit: RIGHT FEMUR FRACTURE Follow-up/Referrals: Rick Crawford MD [Surgeon] - (as needed) Teresa Pendleton [Primary Care Provider] - Dwayne Green Chainer Provider Instructions: Orthopedic instructions: Out of bed to chair as tolerated. No weightbearing. May do hip range of motion as tolerated. No hip precautions necessary. Ice and elevate as needed for pain or swelling. Call [phone] with any increased pain, questions or concerns. Follow-up with Dr. Crawford as needed. Medications and DC Order Prescriptions: No Action quetiapine 25 mg Tablet 12.5 mg PO HS levothyroxine 137 mcg Tablet 137 mcg PO DAILY atorvastatin 80 mg Tablet 80 mg PO DAILY carvedilol 25 mg Tablet 25 mg PO BID acetaminophen 325 mg Tablet 650 mg PO Q6H MDD 3 GRAMS PRN (Reason: Pain (Scale Score 1-10)) acetaminophen 325 mg Tablet 650 mg PO Q6H PRN (Reason: ELEVATED TEMPERATURE >101) Rx Instructions: DO NOT EXCEED 3 GM/24 HOURS acetaminophen 325 mg Tablet 650 mg PO Q6H MDD 3 GRAMS/24 HOURS PRN (Reason: PANCHO LEVEL 1-3 ON A SCALE OF 1-10) donepezil 10 mg Tablet 10 mg PO DAILY ondansetron HCl 4 mg Tablet 4 mg PO Q8H PRN (Reason: Nausea) sennosides-docusate sodium [Senna Plus] 8.6-50 mg Tablet 1 tab-cap PO HS dextrose [Insta-Glucose] 40 % Gel 1 ea PO USEASDIRECTD PRN (Reason: HYPOGLYCEMIA BLOOD GLUCOSE LESS THAN 60) Rx Instructions: MUST BE RESPONSIVE AND ABLE TO SAFELY SWALLOW prednisone 5 mg Tablet 5 mg PO DAILY melatonin 3 mg Tablet 12 mg PO HS PRN (Reason: Insomnia) omeprazole 40 mg Capsule,Delayed Release(Dr/Ec) 40 mg PO BID entacapone 200 mg Tablet 200 mg PO TID cyanocobalamin (vitamin B-12) 500 mcg Tablet 500 mcg PO DAILY tamsulosin [Flomax] 0.4 mg Capsule 0.8 mg PO DAILY amlodipine 10 mg Tablet 10 mg PO DAILY bisacodyl [Dulcolax (bisacodyl)] 10 mg Suppository 10 mg NM Q48H PRN (Reason: Constipation) ferrous sulfate 325 mg (65 mg iron) Tablet 325 mg PO DAILY Enema 19-7 gram/118 mL Enema 118 ml NM Q48H PRN (Reason: Constipation) nitroglycerin [Nitrostat] 0.4 mg Tablet, Sublingual 0.4 mg sublingual Q5M MDD 3 DOSES IN 15 MINUTES PRN (Reason: Chest Pain) aspirin 81 mg Tablet,Chewable 81 mg PO DAILY folic acid 1 mg Tablet 1 mg PO DAILY carbidopa-levodopa 25-100 mg Tablet 2 tab PO QID fluticasone propionate [Flonase] 50 mcg/actuation [place],Suspension 2 spray INTRANASAL DAILY PRN (Reason: Congestion) Rx Instructions: administer into each nostril loratadine 10 mg Tablet 10 mg PO DAILY insulin lispro [Humalog KwikPen Insulin] 100 unit/mL Insulin Pen 4 unit SUBCUT .SEERXINSTRUCTIONS Rx Instructions: WITH MEALS insulin lispro [Humalog KwikPen Insulin] 100 unit/mL Insulin Pen 0 unit SUBCUT .PERSLIDINGSCALE W/M Rx Instructions: IF 150-200 = 2 UNITS; 201-250= 4 UNITS; 251-300=6 UNITS; 301-350=8 UNITS; 351-400=10 UNITS>400 CALL MD, WITH MEALS memantine 10 mg Tablet 10 mg PO Q12H cinacalcet 60 mg Tablet 60 mg PO DAILY insulin glargine [Lantus Solostar U-100 Insulin] 100 unit/mL (3 mL) Insulin Pen 8 unit SUBCUT HS duloxetine 30 mg Capsule, Delayed Rel Sprinkle 30 mg PO Q12H glucagon HCl [Glucagon (HCl) Emergency Kit] 1 mg Recon Soln 1 mg IM Q15M PRN (Reason: HYPOGLYCEMIA BLOOD GLUCOSE <60 AND SYMPTOMATIC) thiamine HCl (vitamin B1) 100 mg Tablet 100 mg PO DAILY torsemide 10 mg Tablet 10 mg PO DAILY olanzapine [Zyprexa] 2.5 mg Tablet 2.5 mg PO Q12H tramadol 50 mg Tablet 50 mg PO Q4H PRN (Reason: HIP PAIN) tramadol 50 mg Tablet 50 mg PO Q4H PRN (Reason: HIP PAIN SCALE 4-10 ) trazodone 150 mg Tablet 75 mg PO HS tacrolimus 1 mg Capsule 1 mg PO DAILY tacrolimus 0.5 mg Capsule 0.5 mg PO HS Admission Data Admit Date/Time: 07/31/24 23:30 Attending Provider: Quan Boyer Admit Provider: Margie Harmon Primary Care Provider: Teresa Pendleton Other Providers: Blayne De La Vega; Rick Crawford; Elle Calvin; Felisha Garcia Hospital Stay Data Consultations 07/31/24 22:15 Consult Orthopedic Surgery Routine ED Decision to Admit Stat 08/01/24 16:02 Consult Palliative Care Routine Procedures Performed Operation Date: 08/01/24 08:20 <No data on this case meets the specified criteria> Diagnostic Imagining Performed 07/31/24 CT cervical spine wo con Stat 07/31/24 17:02 CT abd pelvis IV con only Stat 07/31/24 17:03 CT cervical spine wo con Stat 07/31/24 19:36 CT head/brain wo con Stat Coding Diagnoses Pathological fracture due to age-related osteoporosis M80.00XA Right femoral fracture S72.144A Encounter type: initial encounter Femur location: intertrochanteric Fracture alignment: nondisplaced Fracture type: closed Parkinson disease G20.A1 Dementia F03.90 Diabetes E11.9 History of kidney transplant Z94.0 Stenosis of right carotid artery I65.21 Aortic stenosis I35.0 CAD (coronary artery disease) I25.10 BPH (benign prostatic hyperplasia) N40.0 Acute metabolic encephalopathy G93.41 Failure to thrive in adult R62.7 Hyperparathyroidism E21.3 Hypothyroidism E03.9 Pressure injury of left heel, unstageable L89.620
== END 2024-08-05 14:32 | DRG 542 ==
LOC: ED 16:28 → SUATTDRO 23:30 → 3W 23:30